=== PATIENT | female | born 1975 | race Caucasian/White ===

== ENCOUNTER 2020-11-05 10:39 | Outpatient (CLI) | payer OTHER, SELFPAY ==
[2020-11-05 11:38] LABS: Influenza Control Valid (Valid)
[2020-11-05 11:39] LABS: SARS-CoV-2 Ag Negative (Negative)
== END 2020-11-05 10:40 | disposition home or self-care (01) ==
LOC: CHSLAB 10:42
PROVIDERS: PCP Internal Medicine; Visit Provider Internal Medicine
DX: R50.9 Fever, unspecified (principal); R09.81 Nasal congestion; Z20.828 Contact with and (suspected) exposure to other viral communicable diseases
CPT/HCPCS: 87426; 87804

== ENCOUNTER 2020-11-09 12:30 | Outpatient (CLI) | payer OTHER, SELFPAY ==
[2020-11-09 13:21] LABS: SARS-CoV-2 Ag Negative (Negative)
== END 2020-11-09 12:31 | disposition home or self-care (01) ==
LOC: CHSLAB 12:33
PROVIDERS: PCP Internal Medicine; Visit Provider Internal Medicine
DX: Z20.828 Contact with and (suspected) exposure to other viral communicable diseases (principal)
CPT/HCPCS: 87426

== ENCOUNTER 2020-12-08 07:56 | Outpatient (CLI) | payer OTHER, SELFPAY ==
--- NOTE | ~2020-12-08 | MM_ITS ---
EXAMINATION: MM screening matheus BI w kaylene HISTORY: Screening mammogram TECHNIQUE: Craniocaudal and mediolateral oblique 3-D tomosynthesis images were obtained and synthetic 2-D images were generated. CAD analysis was submitted and interpreted. COMPARISON: 10/23/2019, 01/30/2018, 06/01/2016 bilateral digital screening mammogram examinations BREAST PARENCHYMAL COMPOSITION: There are scattered areas of fibroglandular density. FINDINGS: There is no evidence of suspicious mass, calcification, or architectural distortion to sugg est malignancy in either breast. There has been no suspicious interval change. IMPRESSION: 1. No mammographic evidence of malignancy. 2. Recommend routine screening mammography in one year. BI-RADS Category 1: Negative Reviewed, dictated and finalized at location A. HALMIC AIDE
== END 2020-12-08 07:57 | disposition home or self-care (01) ==
LOC: CHSIMG 07:59
PROVIDERS: PCP Internal Medicine; Visit Provider Nurse Practitioner
DX: Z12.31 Encounter for screening mammogram for malignant neoplasm of breast (principal)
CPT/HCPCS: 77063; 77067

== ENCOUNTER 2021-05-18 11:32 | Outpatient (CLI) | payer OTHER, SELFPAY ==
--- NOTE | ~2021-05-18 | XR_ITS ---
EXAMINATION: XR lumbar spine 2-3V DATE: 05/18/2021 11:59 INDICATION: Low back pain TECHNIQUE: Anteroposterior and lateral views of the lumbar spine, and cone-down lateral view of the l umbosacral junction were obtained. COMPARISON: CT, 07/12/2019 FINDINGS: There are 20 degrees of thoracolumbar dextroscoliosis. No fracture is identified. The verte bral body heights are maintained. There is moderate asymmetric loss of intervertebral disc space heig ht on the right at L4-5 and mild asymmetric loss of intervertebral disc space height on the left at L 1-2 and L2-3. The bowel gas pattern is normal. IMPRESSION: 1. Lumbar dextroscoliosis and mild spondylosis without acute findings. Reviewed, dictated and finalized at location B.
== END 2021-05-18 11:33 | disposition home or self-care (01) ==
LOC: CHSIMG 11:34
PROVIDERS: PCP Internal Medicine; Visit Provider Nurse Practitioner Family
DX: M54.5 Low back pain (principal)
CPT/HCPCS: 72100

== ENCOUNTER 2021-06-10 11:04 | Outpatient (CLI) | payer OTHER, SELFPAY ==
[2021-06-10 12:57] LABS: SARS-CoV-2 RNA PCR Negative (Negative)
== END 2021-06-10 11:05 | disposition home or self-care (01) ==
LOC: CHSLAB 11:06
PROVIDERS: PCP Internal Medicine; Visit Provider Internal Medicine
DX: J06.9 Acute upper respiratory infection, unspecified (principal)
CPT/HCPCS: C9803; U0003; U0005

== ENCOUNTER 2021-06-29 16:56 | Outpatient (CLI) | payer OTHER, SELFPAY ==
[2021-06-29 18:18] LABS: SARS-CoV-2 RNA PCR Negative (Negative)
== END 2021-06-29 16:57 | disposition home or self-care (01) ==
LOC: CHSLAB 16:59
PROVIDERS: PCP Internal Medicine; Visit Provider Internal Medicine
DX: J06.9 Acute upper respiratory infection, unspecified (principal); Z20.822 Contact with and (suspected) exposure to COVID-19
CPT/HCPCS: C9803; U0003; U0005

== ENCOUNTER 2021-07-09 12:34 | Outpatient (CLI) | payer OTHER, SELFPAY ==
--- NOTE | ~2021-07-09 | CT_ITS ---
EXAMINATION: CT sinus wo con DATE: 07/09/2021 12:49 INDICATION: Chronic sinusitis TECHNIQUE: Computed tomography (CT) of the paranasal sinuses was performed without intravenous contra st. The dose-length product was 279.81 mGy-cm. Automated exposure control and iterative reconstructio n technique were employed. COMPARISON: None FINDINGS: No significant mucosal thickening, fluid or mucoperiosteal reaction. Rightward nasal septal deviation. Ostiomeatal units are patent. Mastoids are pneumatized. IMPRESSION: 1. No significant sinus disease. Reviewed, dictated and finalized at location A.
== END 2021-07-09 12:35 | disposition home or self-care (01) ==
LOC: CHSIMG 12:36
PROVIDERS: PCP Internal Medicine; Visit Provider Internal Medicine
DX: J32.9 Chronic sinusitis, unspecified (principal)
CPT/HCPCS: 70486

== ENCOUNTER 2021-11-24 11:39 | Outpatient (CLI) | payer OTHER, SELFPAY ==
[2021-11-24 13:05] LABS: Influenza Control Valid (Valid); SARS-CoV-2 Ag Positive (Negative)
== END 2021-11-24 11:40 | disposition home or self-care (01) ==
LOC: CHSLAB 11:40
PROVIDERS: PCP Internal Medicine; Visit Provider Internal Medicine
DX: U07.1 COVID-19 (principal); J06.9 Acute upper respiratory infection, unspecified
CPT/HCPCS: 87081; 87426; 87804; 87880; C9803

== ENCOUNTER 2022-01-27 07:28 | Outpatient (CLI) | payer OTHER, SELFPAY ==
--- NOTE | ~2022-01-27 | MM_ITS ---
EXAMINATION: MM screening matheus BI w kaylene HISTORY: Screening TECHNIQUE: Craniocaudal and mediolateral oblique 3-D tomosynthesis images were obtained and synthetic 2-D images were generated. CAD analysis was submitted and interpreted. COMPARISON: Comparison to multiple prior studies sequentially, with oldest reviewed study dated 07/15. BREAST PARENCHYMAL COMPOSITION: There are scattered areas of fibroglandular density. FINDINGS: There is no evidence of suspicious mass, calcification, or architectural distortion to sugg est malignancy in either breast. There has been no suspicious interval change. IMPRESSION: 1. No mammographic evidence of malignancy. 2. Recommend routine screening mammography in one year. BI-RADS Category 1: Negative Reviewed, dictated and finalized at location A. THCARE RECRUITER
== END 2022-01-27 07:29 | disposition home or self-care (01) ==
LOC: CHSIMG 07:31
PROVIDERS: PCP Internal Medicine; Visit Provider Nurse Practitioner
DX: Z12.31 Encounter for screening mammogram for malignant neoplasm of breast (principal)
CPT/HCPCS: 77063; 77067

== ENCOUNTER → 2022-03-17 14:50 | Outpatient (CLI) | payer OTHER, SELFPAY ==
--- NOTE | ~2022-03-17 | US_ITS ---
EXAMINATION: US pelvic complete DATE: 03/17/2022 15:14 INDICATION: Menorrhagia TECHNIQUE: Multiple transabdominal sonographic images of the pelvis were obtained. COMPARISON: None. FINDINGS: The uterus measures 7.6 x 3.2 x 3.3 cm. The endometrial complex measures 6 mm. The right ov talon measures 3.1 x 2.5 x 2.4 cm. The left ovary measures 2.7 x 1.8 x 2.7 cm. There is normal vascular flow in the ovaries. There is no free fluid in the pelvis. IMPRESSION: 1. No sonographic correlate for the patient's symptoms. Reviewed, dictated and finalized at location F.
== END ==
PROVIDERS: PCP Internal Medicine; Visit Provider Obstetrics & Gynecology Gynecology
DX: N92.0 Excessive and frequent menstruation with regular cycle (principal)
CPT/HCPCS: 76856

== ENCOUNTER 2022-06-27 12:02 | Outpatient (CLI) | payer OTHER, SELFPAY ==
[2022-06-27 12:58] LABS: SARS-CoV-2 RNA PCR Negative (Negative)
== END 2022-06-27 12:03 | disposition home or self-care (01) ==
LOC: CHSLAB 12:05
PROVIDERS: PCP Internal Medicine; Visit Provider Nurse Practitioner Family
DX: R51.9 Headache, unspecified (principal); Z20.822 Contact with and (suspected) exposure to COVID-19
CPT/HCPCS: C9803; U0003; U0005

== ENCOUNTER 2022-07-19 14:12 | Emergency (ER) | payer OTHER, SELFPAY ==
[2022-07-19] VITALS (15 sets, daily range): BP systolic 122–178; BP diastolic 73–97; PULSE 87–115; RESP 16; TEMP 36.4–36.8; O2SAT 96–100
--- NOTE | ~2022-07-19 | XR_ITS ---
EXAMINATION: XR chest 1V portable DATE: 07/19/2022 14:40 INDICATION: Chest pain. TECHNIQUE: A single frontal view of the chest was obtained. COMPARISON: None. FINDINGS: There is no pneumonia, pleural effusion, or pneumothorax. The heart size is normal. IMPRESSION: 1. No acute cardiopulmonary disease. Reviewed, dictated and finalized at location A.
[2022-07-19] MEDS: ASPIRIN 81 MG CHEWABLE TABLET 324 MG PO (14:36)
--- NOTE | 2022-07-19 14:46 | ECG_ITS ---
Measurements Intervals [place] Rate: 104 P: 13 WI: 128 QRS: 35 QRSD: 93 T: 37 QT: 350 QTc: 461 Interpretive Statements SINUS TACHYCARDIA ABNORMAL RHYTHM ECG NO PREVIOUS ECG AVAILABLE FOR COMPARISON Electronically Signed On 07-19-2022 20:35:15 CDT by Lima Mcfadden M.D.
[2022-07-19 14:51] LABS: Basophils Absolute Auto 0.05 K/mm3 (0.00-0.10); Basophils Percent Auto 0.6 % (0.0-1.0); Eosinophils Absolute Auto 0.15 K/mm3 (0.02-0.50); Eosinophils Percent Auto 1.7 % (1.0-6.0); Hematocrit 38.7 % (35.0-49.0); Immature Granulocyte Absolute 0.03 K/mm3 (0.00-0.00); Immature Granulocyte Percent A 0.3 % (0.0-0.0); Lymphocytes Absolute Auto 3.31 K/mm3 (1.10-4.50); Lymphocytes Percent Auto 37.9 % (18.0-42.0); Mean Corpuscular HGB Conc 33.6 g/dL (32.0-36.0); Mean Corpuscular Hemoglobin 31.1 pg (27.0-31.0); Mean Corpuscular Volume 92.6 fL (78.0-102.0); Mean Platelet Volume 9.7 fl (9.2-11.8); Monocytes Absolute Auto 0.61 K/mm3 (0.10-0.90); Neutrophils Absolute Auto 4.6 K/mm3 (1.7-7.2); Neutrophils Percent Auto 52.5 % (50.0-70.0); Platelet Count Result 296 K/mm3 (150-420); Red Blood Count 4.18 M/mm3 (4.20-5.40); Red Cell Distribution Width 12.9 % (11.6-14.4); White Blood Count 8.7 K/mm3 (4.8-10.8)
[2022-07-19 15:18] LABS: Appearance Urine Clear (Clear); Bilirubin Urine Negative (Negative); Color Urine Light Yellow (Yellow); Glucose Urine UA Negative (Negative); Ketones Urine Negative (Negative); Leukocyte Esterase Ur Negative LEU/UL (Negative); Nitrate Urine Negative (Negative); Protein Urine Negative (Negative); Specific Grav Ur <= 1.005 (1.010-1.020); Urobilinogen Urine 0.2 mg/dL (0.2-1.0); pH Urine 6.5 (5.0-8.0)
[2022-07-19 15:21] LABS: Lactic Acid Reflex 1.1 mmol/L (0.4-2.0)
[2022-07-19 15:26] LABS: Alanine Aminotransferase 34 U/L (14-59); Albumin Level 4.2 g/dL (3.4-5.0); Alkaline Phosphatase 73 U/L (46-116); Anion Gap 12 mmol/L (8-16); Aspartate Amino Transferase 25 U/L (15-37); Bilirubin,Total 0.3 mg/dL (0.00-1.00); Blood Urea Nitrogen 14 mg/dL (7-18); Calcium 9.3 mg/dL (8.5-10.1); Carbon Dioxide 22 mmol/L (21-32); Chloride 101 mmol/L (98-108); Estimated Glomerular Filt Rate > 60; Glucose 89 mg/dL (70-99); NT Pro B Type Natriuretic Pept < 11 pg/mL (0-125); Osmolality Calculated 279 mOsm/kg (285-295); Potassium 3.5 mmol/L (3.5-5.1); Sodium 135 mmol/L (136-145); Total Protein 7.8 g/dL (6.4-8.2)
[2022-07-19 15:30] LABS: Add Urine Microscopic? YES; Amphetamine Screen Urine Negative (Negative); Bacteria Urine Trace /hpf; Barbiturate Screen Urine Negative (Negative); Benzodiazepines Screen Urine Negative (Negative); Blood Urine Trace-lysed (Negative); Cannabinoid Screen Urine Negative (Negative); Cocaine Screen Urine Negative (Negative); Methadone Screen Urine Negative (Negative); Opiate Screen Urine Negative (Negative); Phencyclidine Screen Urine Negative (Negative); RBC Urine 0-2 /hpf (0-2); Squamous Epithelial Cell Urine Rare /hpf (Few); WBC Urine 0-3 /hpf (0-3)
[2022-07-19 15:36] LABS: Troponin I 9.1 ng/L (0.00-60.4)
[2022-07-19 15:36] LABS: Ethanol < 3 mg/dL (0-6); Thyroid Stimulating Hormone 2.44 uIU/mL (0.36-3.74)
--- NOTE | 2022-07-19 15:52 | ED.CHESTPAIN ---
HPI - Chest Pain General Chief Complaint: Chest Pain Stated Complaint: CHEST PAIN/SOB Time Seen by Provider: 07/19/22 14:16 Source: patient and RN notes reviewed Mode of arrival: ambulatory Limitations: no limitations History of Present Illness MD complaint: chest pain Onset (ago): day(s) (1) Timing of current episode: constant Prior episodes: Yes Onset: during rest Pain location: substernal Pain radiation: none Severity: moderate Pain scale (0-10): 7 Quality: sharp and tearing Relieving factors: nothing Exacerbating factors: inspiration Treatment prior to arrival: none Related Data Home Medications Medication Instructions Recorded Confirmed acyclovir 400 mg tablet 400 mg PO BID 07/19/22 07/19/22 alprazolam 0.25 mg tablet 0.25 mg PO DAILY 07/19/22 07/19/22 amlodipine 10 mg tablet 10 mg PO DAILY 07/19/22 07/19/22 bupropion HCl 300 mg 24 hr tablet, 300 mg PO DAILY 07/19/22 07/19/22 extended release buspirone 10 mg tablet 10 mg PO BID 07/19/22 07/19/22 duloxetine 60 mg capsule,delayed 60 mg PO DAILY 07/19/22 07/19/22 release losartan 25 mg tablet 25 mg PO DAILY 07/19/22 07/19/22 rosuvastatin 20 mg tablet 20 mg PO DAILY 07/19/22 07/19/22 Allergies Allergy/AdvReac Type Severity Reaction Status Date / Time Cephalosporins Allergy Intermediate Unknown Verified 07/19/22 14:37 Review of Systems Review of Systems: All systems reviewed & are unremarkable except as noted in HPI and below Constitutional: Constitutional: Reports no additional constitutional complaints Eyes: Eyes: Reports no additional eye complaints ENT: Reports system reviewed and no additional complaints, except as documented Cardiovascular: Cardiovascular: Denies no additional cardiovascular complaints and Reports chest pain Respiratory: Respiratory: Reports no additional respiratory complaints Gastrointestinal: Gastrointestinal: Reports no additional gastrointestinal complaints Genitourinary: Genitourinary: Reports no additional female genitourinary complaints Musculoskeletal: Musculoskeletal: Reports no additional musculoskeletal complaints Integumentary/Breasts: Skin/Breast: Reports system reviewed and no additional complaints, except as docu Neurologic: Reports system reviewed and no additional complaints, except as documented Psychiatric: Psychiatric: Reports no additional psychiatric complaints Endocrine: Endocrine: Reports no additional endocrine complaints Hematologic/Lymphatic: Hematologic/Lymphatic: Reports no additional hematologic/lymphatic complaints Allergic/Immunologic: Allergic/Immunologic: Reports no additional allergic/immunologic complaints PMFSH Past Medical History Medical History Chest pain due to GERD Pleurisy Social History Social History Smoking status: Current some day smoker Exam Const: General: no acute distress Nutritional Appearance: well nourished Orientation/consciousness: patient oriented x3 Limitations: no limitations HENMT: Head: normal to inspection Ears: external ears normal, TM's normal bilaterally and EAC's normal General nose exam: Normal external nose present and Normal nares present Face and sinus: normal facial exam and sinuses nontender Mouth: Yes Normal oral and palatal mucosa present and Yes moist mucous membranes Teeth and gingiva: dentition normal Throat: posterior oropharynx normal Eyes: Conjunctivae: conjunctivae normal Pupils: Equal, round and reactive pupils present EOM: EOMs intact bilaterally Neck: Neck: normal visual inspection, no lymphadenopathy and no meningeal signs Chest: Chest palpation & inspection: normal inspection of the chest Other: minimal anterior chest wall tenderness. Resp: Effort & Inspection: normal respiratory effort Auscultation: clear to auscultation bilaterally Cardio: Rate: regular rate Rhythm: regular rhythm GI: GI Palp
[2022-07-19] MEDS: ACETAMINOPHEN 325 MG TABLET 650 MG PO (16:00)
[2022-07-19] MEDS: MAG HYDROX/ALUMINUM HYD/SIMETH 30 ML, PHENobarb/HYOSCY/ATROPINE/SCOP 32.4 MG, LIDOCAINE... PO (16:01)
== END 2022-07-19 16:19 | disposition home or self-care (01) ==
PROVIDERS: Emergency Provider Emergency Medicine; PCP Internal Medicine
DX: R07.89 Other chest pain (principal); R09.1 Pleurisy; K21.9 Gastro-esophageal reflux disease without esophagitis
CPT/HCPCS: 36415; 71045; 80053; 80307; 81001; 83605; 83880; 84443; 84484; 85025; 93005; 99284; A9270

== ENCOUNTER 2022-07-29 08:00 | Outpatient (CLI) | payer OTHER, SELFPAY ==
--- NOTE | ~2022-07-29 | US_ITS ---
EXAMINATION: US right upper quadrant DATE: 07/29/2022 09:25 INDICATION: Abdominal pain and nausea TECHNIQUE: Multiple grayscale and Doppler ultrasound images of the abdomen were obtained. COMPARISON: CT, 07/12/2019 FINDINGS: Bowel gas obscures visualization of the pancreas. The visualized portions of the pancreas a re unremarkable. The liver demonstrates increased echogenicity, heterogenous echotexture, and decreas ed through transmission. No surface nodularity. Normal hepatopetal flow in the main portal vein. The gallbladder is normal with no abnormal wall thickening, pericholecystic fluid or stones. The normal c ommon bile duct measures 6 mm. There was no sonographic Paz sign. IMPRESSION: 1. Diffuse hepatic steatosis. Reviewed, dictated and finalized at location B.
== END 2022-07-29 08:01 | disposition home or self-care (01) ==
LOC: CHSIMG 08:01
PROVIDERS: PCP Internal Medicine; Visit Provider Internal Medicine
DX: R10.11 Right upper quadrant pain (principal)
CPT/HCPCS: 76705

== ENCOUNTER 2022-08-15 10:57 | Outpatient (CLI) | payer OTHER, SELFPAY ==
--- NOTE | ~2022-08-15 | NM_ITS ---
HEPATOBILIARY SCAN Procedure: Hepatobiliary scan performed following IV administration 6.1 mCi Tc 99m Choletec. At 60 m inutes 1.7 mcg CCK administered IV for evaluation of gallbladder ejection fraction. Indication:Right upper quadrant pain Comparison: Ultrasound dated 07/29/2022 Findings: There is normal radiotracer uptake in the liver parenchyma with prompt excretion into the b iliary tract. Gallbladder visualized at 15 minutes. Small bowel visualized at 5 minutes. Normal ga llbladder ejection fraction measures 72% (normal 10-90%, but most patients with gallbladder dysfuncti on have GBEF of less than 35%) Impression: 1: Normal hepatobiliary scan. Reviewed, dictated and finalized at location B. Impression: 1: Normal hepatobiliary scan.
== END 2022-08-15 10:58 | disposition home or self-care (01) ==
LOC: CHSIMG 10:59
PROVIDERS: PCP Internal Medicine; Visit Provider Internal Medicine
DX: R10.11 Right upper quadrant pain (principal); R11.0 Nausea
CPT/HCPCS: 78227; A9537; J2805

== ENCOUNTER 2023-02-13 07:59 | Outpatient (CLI) | payer OTHER, SELFPAY ==
--- NOTE | ~2023-02-13 | MM_ITS ---
EXAMINATION: MM screening matheus BI w kaylene HISTORY: Screening TECHNIQUE: Craniocaudal and mediolateral oblique 3-D tomosynthesis images were obtained and synthetic 2-D images were generated. CAD analysis was submitted and interpreted. COMPARISON: Comparison to multiple prior studies sequentially, with oldest reviewed study dated 07/15. BREAST PARENCHYMAL COMPOSITION: There are scattered areas of fibroglandular density. FINDINGS: There is no evidence of suspicious mass, calcification, or architectural distortion to sugg est malignancy in either breast. There has been no suspicious interval change. IMPRESSION: 1. No mammographic evidence of malignancy. 2. Recommend routine screening mammography in one year. BI-RADS Category 1: Negative Reviewed, dictated and finalized at location A.
== END 2023-02-13 08:00 | disposition home or self-care (01) ==
LOC: CHSIMG 08:00
PROVIDERS: PCP Internal Medicine; Visit Provider Obstetrics & Gynecology Gynecology
DX: Z12.31 Encounter for screening mammogram for malignant neoplasm of breast (principal)
CPT/HCPCS: 77063; 77067

== ENCOUNTER 2023-06-07 07:17 | Day surgery (SDC) | payer OTHER, SELFPAY ==
[2023-04-28 11:18] VITALS: BMI 33.5
[2023-05-30 10:09] VITALS: BMI 34.5
--- NOTE | 2023-06-06 08:17 | WPDANESEPPF ---
Anes - Initial Pre Proc Eval Procedure: Operation Date: 06/07/23 09:15 Proposed Procedures p Screening Colonoscopy - Avila Guerra DO Date/Time: 06/06/23 08:17 Surgeon: Avila Guerra DO Pre Op Diagnosis: Neoplasm Screening Patient Data Age: 48 Gender: F Height: 1.6 m Weight: 88.5 kg Allergies Allergy/AdvReac Type Severity Reaction Status Date / Time No Known Allergies Allergy Verified 06/07/23 08:00 Home Medications Medication Instructions Recorded Confirmed Type acyclovir 400 mg tablet 400 mg PO DAILY 07/19/22 06/07/23 History alprazolam 0.25 mg tablet 0.25 mg PO DAILY PRN Anxiety 07/19/22 06/07/23 History amlodipine 10 mg tablet 10 mg PO DAILY 07/19/22 06/07/23 History buspirone 10 mg tablet 10 mg PO BID 07/19/22 06/07/23 History losartan 25 mg tablet 25 mg PO DAILY 07/19/22 06/07/23 History rosuvastatin 20 mg tablet 20 mg PO DAILY 07/19/22 06/07/23 History pantoprazole 40 mg tablet,delayed 40 mg PO DAILY 05/30/23 06/07/23 History release quetiapine 25 mg tablet 25 mg PO BID 05/30/23 06/07/23 History Patient hx anesthesia problems: none Family hx anesthesia problems: none Results Review: All pre-operative results and documents have been reviewed as part of the pre-operative evaluation. [facility] Past Medical History Medical History (Updated 06/07/23 @ 08:36 by Avila Guerra DO) Anxiety Chest pain due to GERD Chronic GERD Depression HTN (hypertension) Hyperlipidemia Obesity Pleurisy Social History Social History Smoking status: Never smoker Alcohol intake: current Substance use: never Substance use type: does not use Living arrangements: with family Spiritual care concerns: No Anes - Eval Final PreProcedure Day of Procedure 06/06/23 08:17 Patient weight: obese Heart: regular rate and rhythm Lungs: clear to auscultation and normal air movement Airway: Mallampati scale class II Neurological: alert and oriented Last oral intake: >/= 8 hours ASA classification: III Emergent: no Anesthetic plan: proceed Anesthesia type and monitoring: general GIVS Results Review: All pre-operative results and documents have been reviewed as part of the pre-operative evaluation. Informed Consent: The patient's anesthetic plan and its attendant risks and benefits were discussed with the patient/family/POA. Questions were solicited and answers provided to the satisfaction of the patient/family/POA.
[2023-06-07 08:06] VITALS: BP 121/71; PULSE 72; RESP 14; TEMP 36.4; O2SAT 100
[2023-06-07] MEDS: LACTATED RINGERS 1,000 ML 150 ML IV CONT (08:17)
--- NOTE | 2023-06-07 08:35 | PM.IMHP ---
H&P: HPI History of Present Illness Date/Time: 06/07/23 08:35 Chief Complaint: Screening for colorectal cancer Narrative: this is a 48-year-old woman who presents for colonoscopy. She has never had a colonoscopy before. She denies any family history of colon cancer in first-degree relatives, but does have an aunt and cousin that were diagnosed with colon cancer. She denies any hematochezia or melena. She denies any other changes in bowel habits. Review of Systems Review of Systems: All systems reviewed & are unremarkable except as noted in HPI and below Constitutional: Constitutional: Denies chills, Denies fever(s), Denies headache(s) and Denies weight loss Eyes: Eyes: Denies change in vision ENT: Denies dizziness, Denies headache(s), Denies neck mass and Denies throat swelling Cardiovascular: Cardiovascular: Denies chest pain, Denies lightheadedness and Denies dyspnea Respiratory: Respiratory: Denies cough, Denies dyspnea and Denies wheezing Gastrointestinal: Gastrointestinal: Denies abdominal pain, Denies change in bowel habits, Denies nausea and Denies vomiting Genitourinary: Genitourinary: Denies hematuria and Denies dysuria Musculoskeletal: Musculoskeletal: Reports as per HPI Integumentary/Breasts: Skin/Breast: Reports as per HPI Neurologic: Denies dizziness and Denies headache(s) Allergic/Immunologic: Allergic/Immunologic: Denies throat swelling and Denies wheezing [facility] Past Medical History Medical History (Updated 06/07/23 @ 08:36 by Avila Guerra DO) Anxiety Chest pain due to GERD Chronic GERD Depression HTN (hypertension) Hyperlipidemia Obesity Pleurisy Social History Social History Smoking status: Never smoker Alcohol intake: current Substance use: never Substance use type: does not use Living arrangements: with family Spiritual care concerns: No Meds Home Medications and Allergies Home Medications Medication Instructions Recorded Confirmed Type acyclovir 400 mg tablet 400 mg PO DAILY 07/19/22 06/07/23 History alprazolam 0.25 mg tablet 0.25 mg PO DAILY PRN Anxiety 07/19/22 06/07/23 History amlodipine 10 mg tablet 10 mg PO DAILY 07/19/22 06/07/23 History buspirone 10 mg tablet 10 mg PO BID 07/19/22 06/07/23 History losartan 25 mg tablet 25 mg PO DAILY 07/19/22 06/07/23 History rosuvastatin 20 mg tablet 20 mg PO DAILY 07/19/22 06/07/23 History pantoprazole 40 mg tablet,delayed 40 mg PO DAILY 05/30/23 06/07/23 History release quetiapine 25 mg tablet 25 mg PO BID 05/30/23 06/07/23 History Allergies Allergy/AdvReac Type Severity Reaction Status Date / Time No Known Allergies Allergy Verified 06/07/23 08:00 Vital Signs Vital Signs - 24 hr 06/07/23 08:06 Temperature 36.4 C L Pulse Rate 72 Respiratory Rate 14 Blood Pressure 121/71 Pulse Oximetry 100 Oxygen Delivery Room Air Exam Const: General: no acute distress and alert Orientation/consciousness: patient oriented x3 HENMT: Head: normocephalic and atraumatic Ears: hearing grossly normal bilaterally Face/Nose/Sinus: Normal nares present Mouth: Yes Normal oral and palatal mucosa present Eyes: Periorbital: periorbital findings normal Sclera: sclerae normal EOM: EOMs intact bilaterally Neck: Neck: normal visual inspection, no lymphadenopathy and trachea midline Chest: Chest palpation & inspection: normal inspection of the chest Resp: Effort & Inspection: normal respiratory effort Auscultation: clear to auscultation bilaterally Cardio: Jugular venous distension: no JVD Rate: regular rate Rhythm: regular rhythm Heart sounds: S1 normal heart sound present and S2 normal heart sound present Peripheral pulses: Peripheral pulses 2+ throughout GI: Inspection: normal to inspection GI Palp: Yes Soft to palpation, No Tenderness to palpation present (GI), No Guarding due to palpation present (GI) and No Rebound tenderness present
[2023-06-07 09:52] VITALS: BP 113/56; PULSE 102; RESP 20; O2SAT 100
[2023-06-07 10:02] VITALS: BP 112/85; PULSE 87; RESP 18; O2SAT 97
[2023-06-07 10:12] VITALS: BP 118/65; PULSE 76; RESP 18; O2SAT 99
--- NOTE | 2023-06-07 12:53 | WPDANESPN ---
Anes - Prog Note Post-Op Date/Time: 06/07/23 12:53 Cardiovascular status: normal Respiratory status: normal Airway patency: baseline Mental status: baseline Post-Op hydration status: normal Vital Signs: Last Vital Signs Temp 36.4 C L 06/07/23 08:06 Pulse 76 06/07/23 10:12 Resp 18 06/07/23 10:12 BP 118/65 06/07/23 10:12 Pulse Ox 99 06/07/23 10:12 O2 Del Method Room Air 06/07/23 10:12 Pain Score (VAS): 0 I/O: Intake & Output 06/06/23 06/07/23 06/07/23 23:59 07:59 15:59 Intake Total 600 Balance 600 Post-procedural complaints: none Patient Feedback: Patient satisfied with anesthetic care.
== END 2023-06-07 10:23 | disposition home or self-care (01) ==
PROVIDERS: PCP Internal Medicine; Visit Provider Surgery
PROC: 0DJD8ZZ Inspection of Lower Intestinal Tract, Via Natural or Artificial Opening Endoscopic (ICD-10-PCS; CPT 45378; principal; 2023-06-07 09:15)
DX: Z12.11 Encounter for screening for malignant neoplasm of colon (principal)
CPT/HCPCS: 45378

== ENCOUNTER 2024-08-23 08:36 | Outpatient (CLI) | payer OTHER, SELFPAY ==
--- NOTE | ~2024-08-23 | MM_ITS ---
EXAMINATION: MM screening matheus BI w kaylene HISTORY: Screening TECHNIQUE: Craniocaudal and mediolateral oblique 3-D tomosynthesis images were obtained and synthetic 2-D images were generated. CAD analysis was submitted and interpreted. COMPARISON: Comparison to multiple prior studies sequentially, with oldest reviewed study dated 06/01. BREAST PARENCHYMAL COMPOSITION: Not dense: There are scattered areas of fibroglandular density. FINDINGS: There is no evidence of suspicious mass, calcification, or architectural distortion to sugg est malignancy in either breast. There has been no suspicious interval change. IMPRESSION: 1. No mammographic evidence of malignancy. 2. Recommend routine screening mammography in one year. BI-RADS Category 1: Negative Reviewed, dictated and finalized at location B.
== END 2024-08-23 08:37 | disposition home or self-care (01) ==
LOC: CHSIMG 08:39
PROVIDERS: PCP Internal Medicine; Visit Provider Nurse Practitioner Women's Health
DX: Z12.31 Encounter for screening mammogram for malignant neoplasm of breast (principal)
CPT/HCPCS: 77063; 77067

== ENCOUNTER 2025-01-07 13:38 | Emergency (ER) | payer OTHER, SELFPAY ==
[2025-01-07] VITALS (16 sets, daily range): BP systolic 90–142; BP diastolic 71–92; PULSE 83–103; RESP 14–24; TEMP 36.6; O2SAT 95–100
--- NOTE | ~2025-01-07 | CT_ITS ---
EXAMINATION: CT brain wo con DATE: 01/07/2025 13:59 INDICATION: Cerebrovascular accident. TECHNIQUE: Computed tomography (CT) of the head was performed without intravenous contrast. The mA wa s adjusted according to patient size. Iterative reconstruction technique was employed. The dose-lengt h product was 605.33 mGy-cm. COMPARISON: None FINDINGS: There is no intracranial hemorrhage, acute infarction, or abnormal intracranial mass lesion . The ventricles are normal in size. The orbits are normal. The paranasal sinuses are clear. The mast oid air cells are normal. IMPRESSION: 1. Normal brain. Reviewed, dictated and finalized at location A. LINE SERVICER IMPRESSION: 1. Normal brain.
--- NOTE | ~2025-01-07 | CT_ITS ---
EXAMINATION: CTA brain carotid DATE: 01/07/2025 15:20 INDICATION: Cerebrovascular accident. TECHNIQUE: Computed tomographic angiography (CTA) of the head was performed with 100 mL Omnipaque-350 intravenous contrast. CTA of the neck was performed with intravenous contrast. Automated exposure co ntrol and iterative reconstruction technique were employed. The dose-length product was 1240.05 mGy-c m. Maximum intensity projection and volume rendered 3D-reconstructions were created by the [facility] on a separate workstation. COMPARISON: Head CT 01/07/2025 FINDINGS: HEAD CTA: There is no intracranial hemorrhage, acute infarction, or abnormal intracranial mass lesion . The ventricles are normal in size. The orbits are normal. The paranasal sinuses are clear. The mast oid air cells are normal. Left vertebral artery is dominant. There is no significant stenosis of basi lar artery or the posterior cerebral arteries. There is no significant stenosis of the intracranial i nternal carotid arteries or anterior or middle cerebral arteries. Anterior communicating artery is no rmal. The posterior communicating arteries are normal. There is no aneurysm. NECK CTA: There are no pathologically enlarged lymph nodes. There is no significant stenosis of the v ertebral arteries. There is plaque in the proximal internal carotid arteries. There is 0% stenosis of the proximal right internal carotid artery relative to normal distal artery lumen diameter (NASCET c riteria). There is 0% stenosis of the proximal left internal carotid artery relative to normal distal artery lumen diameter. There is mild cervical spondylosis. IMPRESSION: 1. Normal brain. No aneurysm or significant intracranial arterial stenosis. 2. 0% stenosis of the proximal internal carotid arteries relative to normal distal artery lumen diame ters (NASCET criteria). Reviewed, dictated and finalized at location A. DRIER IMPRESSION: 1. Normal brain. No aneurysm or significant intracranial arterial stenosis. 2. 0% stenosis of the proximal internal carotid arteries relative to normal dis jakub artery lumen diameters (NASCET criteria).
--- NOTE | ~2025-01-07 | XR_ITS ---
EXAMINATION: XR chest 1V portable 01/07/2025 14:05 INDICATION: CVA PROCEDURE: AP portable chest COMPARISON: Comparison to multiple prior studies sequentially, with oldest reviewed study dated 07/19. FINDINGS: The lungs are clear. The cardiomediastinal silhouette is within normal limits. There are no pleural effusions. There is no pneumothorax suspected. IMPRESSION: 1: NO ACUTE CARDIOPULMONARY DISEASE. Reviewed, dictated and finalized at location B. UMER CREDIT COUNSELOR
--- NOTE | 2025-01-07 13:43 | ECG_ITS ---
Test Date: 2025-01-07 14:05:56 Measurements Intervals [place] Rate: 96 P: 21 NM: 157 QRS: 7 QRSD: 98 T: 14 QT: 353 QTc: 447 Interpretive Statements SINUS RHYTHM EARLY PRECORDIAL R/S TRANSITION BASELINE ARTIFACT- I, II, III, AVR, AVF BORDERLINE ECG No previous ECG available for comparison Electronically Signed On 01-07-2025 14:23:24 DIRECTOR FOOD SAFETY by Bear Archuleta D.O.
--- OUTSIDE RECORDS SUMMARY | 2025-01-07 13:47 | XMS_ITS | Referral Summary ---
Author Organization [facility] [address] Address [address] [place] [address] Care Team Providers Care Solar Sales Advisor Name Role Phone Rell Bautista MD Primary Care Provider Allergies No known active allergies Medications HYDROcodone-vicente taminophen (NORCO) 7.5-325 mg per tabletIndicatio ns:Pain 0 8 Active SUMAtriptan (IMITREX) 100 mg tablet Take 1 tablet (100 mg total) by mouth once as needed for migraine for up to 1 dose. 9 tablet 11 8 Active famotidine (PEPCID) 10 mg tablet Take 1 tablet (10 mg total) by mouth 2 (two) times a day. 60 tablet [address] (CYMBALTA) 60 mg capsule Take 1 capsule (60 mg total) by mouth daily. 90 capsule 3 8 Active amLODIPine (NORVASC) 5 mg tablet Take 1 tablet (5 mg total) by mouth daily. 90 tablet 3 8 Active losartan (COZAAR) 25 mg tablet Take 1 tablet (25 mg total) by mouth daily. 90 tablet 3 8 Active sertraline (ZOLOFT) 50 mg tablet Take 1 tablet (50 mg total) by mouth daily. 90 tablet 3 8 Active Additional Information Patient not taking.Reported on 08/03/2021 pravastatin (PRAVACHOL) 20 mg tablet Take 1 tablet (20 mg total) by mouth daily. Cancel atorvastatin 90 tablet 3 9 Active clotrimazole-be tamethasone (LOTRISONE) cream APPLY TO AFFECTED AREA THREE TIMES A DAY DIRECTED 15 g 11 9 Active Additional Information Patient not taking.Reported on 08/03/2021 cyclobenzaprine (FLEXERIL) 10 mg tablet Take 1 tablet (10 mg total) by mouth 2 (two) times a day as needed for muscle spasms 60 tablet 5 9 Active Additional Information Patient not taking.Reported on 08/03/2021 ALPRAZolam (XANAX) 0.5 mg tablet TAKE ONE TABLET BY MOUTH THREE TIMES A DAY NEEDED FOR ANXIETY 60 tablet 9 Active Additional Information Patient not taking.Reported on 08/03/2021 acyclovir (ZOVIRAX) 400 mg tablet [address] (VOLTAREN) 75 mg EC tablet 1 Active rosuvastatin (CRESTOR) 20 mg tablet 1 Active triamcinolone (KENALOG) 0.1 % cream 1 Active buPROPion XL (WELLBUTRIN XL) 300 mg 24 hr tablet Take 300 mg by mouth daily Active fluorometholone (FML) 0.1 % ophthalmic suspension Administer 1 drop into both eyes 2 (two) times a day Active fluticasone propionate (FLONASE) 50 mcg/actuation nasal spray Administer 2 sprays into each nostril daily Active albuterol (PROAIR RESPICLICK) 90 mcg/actuation inhaler Inhale 2 puffs every 6 (six) hours as needed for wheezing Active Active Problems Problem Noted Date Diagnosed Date Chronic nonintractable headache 08/03/2021 Deviated nasal septum 08/03/2021 Non-seasonal allergic rhinitis due to pollen Migraine without aura or status migrainosus 09/20 Gastroesophageal reflux disease without esophagi tis 10/06/2017 Migraine 06/03/2014 Overview (02/24/2017): MIGRNE UNSP WO NTRC MGRN Benign hypertension 04/05/2014 Overview (02/24/2017): BENIGN HYPERTENSION Multiple-type hyperlipidemia 01/04/2013 Overview (02/23/2017): MIXED HYPERLIPIDEMIA Affective psychosis 04/02/2012 Overview (02/24/2017): AFFECTIVE PSYCHOSIS NOS Immunizations Immunization Administration Dates Next Due Influenza, Unspecified 10/08/2018(Deferred: Gala ent Refused) Tdap 03/06/2019 Social History Tobacco Use Types Packs/Day Years Used Date Smoking Tobacco: Former Cigarettes Q uit: 2020 Smokeless Tobacco: Never Alcohol Use Standard Drinks/Week Comments Yes 0 (1 standard drink = 0.6 oz pur e alcohol) PHQ-2 Answer Date Recorded PHQ-2 Score 0 07/13/2019 Comments No Sex and Gender Information Value Date Recorded Sex Assigned at Not on file Legal Sex Female 11:54 PM PUBLIC HEALTH TECHNICIAN Gender Identity Female 08/03/2021 12:38 PM CDT Sexual Orientation Straight 08/03/2021 12 :38 PM CDT Last Filed Vital Signs Vital Sign Reading Time Taken Comments Blood Pressure 142/86 10/08/2018 4:35 PM PUBLIC HEALTH TECHNICIAN Pulse 104 10/08/2018 4:35 PM PUBLIC HEALTH TECHNICIAN Temperature 36.9 C (98.4 F) 08/03/2021 4:17 PM CDT Respiratory Rate 18 10/08/2018 4:35 PM PUBLIC HEALTH TECHNICIAN Oxygen Saturation 96% 10/08/2018 4:35 PM PUBLIC HEALTH TECHNICIAN Inhaled Oxygen Concentration - - Weight 81.6 kg (180 lb) 08/03/2021 4:17 PM CDT Height 157.5 cm (5' 2 ) 08/03/2021 4:17 PM CDT Body Mass Index 32.92 08/03/2021 4:17 PM CDT Plan of Treatment Not on file Insurance [facility] PLUS [facility] PLUS Care Teams Solar Sales Advisor Relationship Specialty Start Date End Date Rell Bautista MD [address] [place] [address] PCP - General Internal Medicine 07/29/21
--- OUTSIDE RECORDS SUMMARY | 2025-01-07 13:47 | XMS_ITS | Clinical Summary ---
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 Hx Other Medical 03-ENT Hx Other Medical 04-NEUROLOGIST Episodic mood disorder (HCC) moo d disorder Hx Other Medical seasonal allerg ic rhinitis Eczema eczema Allergic rhinitis Anxiety Depression Hypertension Sinusitis Hyperlipidemia Migraine GERD (gastroesophageal reflux disease) Family History Medical History Relation Name Comments Hypertension Brother 3 Hypertension; Other Brother 4 Alive and well; Depression Father Depression; Heart attack Maternal Grandmother Myocard ial infarction; Depression Mother Depression; Hypertension Mother Hypertension; Lung cancer Mother Cancer -lung; Other Mother CAD PCI; Heart disease Paternal Grandmother Heart disease; Relation Name Status Comments Brother 1 Alive Brother 2 Alive Brother 3 Brother 4 Father Maternal Grandmother Alive Mother Alive Paternal Grandmother Alive Social History Tobacco Use Types Packs/Day Years Used Date Smoking Tobacco: Former Cigarettes Q uit: 2020 Smokeless Tobacco: Never Alcohol Use Standard Drinks/Week Comments Yes 0 (1 standard drink = 0.6 oz pur e alcohol) PHQ-2 Answer Date Recorded PHQ-2 Score 0 07/13/2019 Comments No Sex and Gender Information Value Date Recorded Sex Assigned at Not on file Legal Sex Female 11:54 PM MEDICAL SUPERVISOR Gender Identity Female 08/03/2021 12:38 PM CDT Sexual Orientation Straight 08/03/2021 12 :38 PM CDT Obstetrics History Last Filed Vital Signs Vital Sign Reading Time Taken Comments Blood Pressure 142/86 10/08/2018 4:35 PM MEDICAL SUPERVISOR Pulse 104 10/08/2018 4:35 PM MEDICAL SUPERVISOR Temperature 36.9 C (98.4 F) 08/03/2021 4:17 PM CDT Respiratory Rate 18 10/08/2018 4:35 PM MEDICAL SUPERVISOR Oxygen Saturation 96% 10/08/2018 4:35 PM MEDICAL SUPERVISOR Inhaled Oxygen Concentration - - Weight 81.6 kg (180 lb) 08/03/2021 4:17 PM CDT Height 157.5 cm (5' 2 ) 08/03/2021 4:17 PM CDT Body Mass Index 32.92 08/03/2021 4:17 PM CDT Plan of Treatment Not on file Insurance [facility] CHOICE PLUS [facility] CHOICE PLUS Care Teams Tile Edger Relationship Specialty Start Date End Date Rell Bautista MD [address] [phone] PCP - General Internal Medicine 07/29/21
--- NOTE | 2025-01-07 13:54 | PC.NURSE ---
covid culture sent to lab
--- NOTE | 2025-01-07 13:55 | ED.GENADULT ---
HPI - General Adult General Chief complaint: Dizziness <Mandy Del Angel MD - Last Filed: 01/07/25 14:50> Stated complaint: slurred speech <Mandy Del Angel MD - Last Filed: 01/07/25 14:50> Time Seen by Provider: 01/07/25 13:43 <Mandy Del Angel MD - Last Filed: 01/07/25 14:50> Source: patient <Mandy Del Angel MD - Last Filed: 01/07/25 14:50> Mode of arrival: ambulatory <Mandy Del Angel MD - Last Filed: 01/07/25 14:50> Limitations: no limitations <Mandy Del Angel MD - Last Filed: 01/07/25 14:50> History of Present Illness HPI narrative: 49 YEARS OLD WHITE FEMALE CAME TO THE ED BY PRIVATE CAR WITH HER BECAUSE OF STROKE/ TIA LIKE SYMPTOMS. PATIENT LAST TIME WAS SEEN BY HER ,OKAY AT 7:00 A.M., WENT BACK HOME AT 11:00 A.M. FOUND PATIENT CONFUSED, STUMBLING AROUND, SLURRY SPEECH, DIZZY,UNABLE TO COMPARHIND HER QUESTIONS, PATIENT DECLINED COMING TO THE EMERGENCY ROOM AT THAT TIME WENT TO SLEEP, WORKUP LATER WITH IMPROVEMENT, CAME TO THE EMERGENCY ROOM. MOST OF THE ABOVE SYMPTOMS ARE RESOLVED ,CURRENTLY FEELING FUZZY IN THE BRAIN AND GENERALLY WEAK. HISTORY OF HYPERTENSION, HYPERLIPIDEMIA, DEPRESSION, ANXIETY, DOES NOT SMOKE CIGARETTES DRINK ALCOHOL OCCASIONALLY DENIES DRUG USE. <Mandy Del Angel MD - Last Filed: 01/07/25 14:50> Related Data Home medications: Home Medications ?Medication ?Instructions ?Recorded ?Confirmed ?Last Taken ?Type acyclovir 400 mg tablet 400 mg PO DAILY 07/19/22 06/07/23 06/07/23 History alprazolam 0.25 mg tablet 0.25 mg PO DAILY PRN Anxiety 07/19/22 06/07/23 06/07/23 History amlodipine 10 mg tablet 10 mg PO DAILY 07/19/22 06/07/23 06/07/23 History buspirone 10 mg tablet 10 mg PO BID 07/19/22 06/07/23 06/07/23 History losartan 25 mg tablet 25 mg PO DAILY 07/19/22 06/07/23 06/06/23 History rosuvastatin 20 mg tablet 20 mg PO DAILY 07/19/22 06/07/23 06/07/23 History pantoprazole 40 mg tablet,delayed 40 mg PO DAILY 05/30/23 06/07/23 06/07/23 History release quetiapine 25 mg tablet 25 mg PO BID 05/30/23 06/07/23 06/07/23 History <Mandy Del Angel MD - Last Filed: 01/07/25 14:50> Allergies/adverse reactions: Allergies Allergy/AdvReac Type Severity Reaction Status Date / Time No Known Allergies Allergy Verified 01/07/25 13:55 <Mandy Del Angel MD - Last Filed: 01/07/25 14:50> Review of Systems Review of Systems: All systems reviewed & are unremarkable except as noted in HPI and below <Mandy Del Angel MD - Last Filed: 01/07/25 14:50> PMFSH Past Medical History Medical History: Medical History Obesity Depression Anxiety Chronic GERD HTN (hypertension) Hyperlipidemia Pleurisy Chest pain due to GERD <Mandy Del Angel MD - Last Filed: 01/07/25 14:50> Social History Social History: Social History Smoking status: Never smoker Alcohol intake: current Substance use: never Substance use type: does not use Living arrangements: with family Spiritual care concerns: No <Mandy Del Angel MD - Last Filed: 01/07/25 14:50> Exam Narrative: GENERAL APPEARANCE: WELL-DEVELOPED, WELL-NOURISHED, INTERMITTENT SIGHING SKIN: NORMAL COLOR HEAD: NORMOCEPHALIC, NONTRAUMATIC EYES: CLEAR CONJUNCTIVA ENT: OROPHARYNX NORMAL, EARS NORMAL, NOSE NORMAL NECK: SUPPLE, NONTENDER CHEST AND RESPIRATORY: AIRWAY PATENT, NO RESPIRATORY DISTRESS, NO ACCESSORY MUSCLE USE HEART: REGULAR RATE/RHYTHM ABDOMEN: SOFT, NONTENDER, NO ORGANOMEGALY, QUIET BOWEL SOUNDS VASCULAR: NORMAL PERIPHERAL PULSES, NORMAL CAPILLARY REFILL. MUSCULOSKELETAL: NORMAL RANGE OF MOTION, NONTENDER BACK NEUROLOGIC: ALERT AND ORIENTED ?3, SEISMIC PROSPECTING SUPERVISOR IS NORMAL TESTED, NO GROSS MOTOR DEFICIT <Mandy Del Angel MD - Last Filed: 01/07/25 14:50> Course Course Emergency Course: Assumed care from Dr. Del Angel at 1500. Labs showed mild leukocytosis, mild RATNA, and normal drug screen and serology. Normal CT brain EXAMINATION: CTA brain carotid DATE: 01/07/2025 15:20 INDICATION: Cerebrovascular accident. TECHNIQUE: Computed tomographic angiography (CTA) of the head was performed with 100 mL Omnipaque-350 intravenous contrast. CTA of the neck was performed with intravenous contrast. Automated exposure control and iterative reconstruction technique were employed. The dose-length product was 1240.05 mGy-cm. Maximum intensity projection and volume rendered 3D-reconstructions were created by the technologist on a separate workstation. COMPARISON: Head CT 01/07/2025 FINDINGS: HEAD CTA: There is no intracranial hemorrhage, acute infarction, or abnormal intracranial mass lesion. The ventricles are normal in size. The orbits are normal. The paranasal sinuses are clear. The mastoid air cells are normal. Left vertebral artery is dominant. There is no significant stenosis of basilar artery or the posterior cerebral arteries. There is no significant stenosis of the intracranial internal carotid arteries or anterior or middle cerebral arteries. Anterior communicating artery is normal. The posterior communicating arteries are normal. There is no aneurysm. NECK CTA: There are no pathologically enlarged lymph nodes. There is no significant stenosis of the vertebral arteries. There is plaque in the proximal internal carotid arteries. There is 0% stenosis of the proximal right internal carotid artery relative to normal distal artery lumen diameter (NASCET criteria). There is 0% stenosis of the proximal left internal carotid artery relative to normal distal artery lumen diameter. There is mild cervical spondylosis. IMPRESSION: 1. Normal brain. No aneurysm or significant intracranial arterial stenosis. 2. 0% stenosis of the proximal internal carotid arteries relative to normal distal artery lumen diameters (NASCET criteria). Will attempt to transfer to a stroke center for further workup and monitoring. Declined at [facility], [facility], [facility] and [facility] systems. Contacted [facility] and spoke with Dr. Birch of [facility] who agreed with admission but [facility] had no beds. Dr. Cabrera accepted at [facility] [place] at [phone] <Kevin Jurado DO - Last Filed: 01/07/25 18:36> Consultations Consultation #1: PATIENT CARE WAS TRANSFERRED TO DR. GUEVARA AT SHIFT CHANGE <Mandy Del Angel MD - Last Filed: 01/07/25 14:50> Date: 01/07/25 <Mandy Del Angel MD - Last Filed: 01/07/25 14:50> Vital Signs Vital signs: Vital Signs Oxygen Delivery Room Air 01/07/25 13:38 Temperature 97.9 F 01/07/25 17:51 Pulse Rate 89 01/07/25 17:46 Respiratory Rate 19 01/07/25 17:46 Blood Pressure 112/80 01/07/25 17:46 Pulse Oximetry 97 01/07/25 17:46 Oxygen Delivery Room Air 01/07/25 13:42 <Mandy Del Angel MD - Last Filed: 01/07/25 14:50> Vital Signs Oxygen Delivery Room Air 01/07/25 13:38 Temperature 97.9 F 01/07/25 17:51 Pulse Rate 89 01/07/25 17:46 Respiratory Rate 01/07/25 17:46 Blood Pressure 112/80 01/07/25 17:46 Pulse Oximetry 97 01/07/25 17:46 Oxygen Delivery Room Air 01/07/25 13:42 <Kevin Jurado DO - Last Filed: 01/07/25 18:36> Medical Decision Making Differential Diagnosis Differential Diagnosis: ANXIETY RELATED SYMPTOMS, TIA, ELECTROLYTE IMBALANCE, DEHYDRATION, URINARY TRACT INFECTION, HYPOGLYCEMIA, HYPOTHYROIDISM <Mandy Del Angel MD - Last Filed: 01/07/25 14:50> Vital Signs Vital Signs: Vital Signs Oxygen Delivery Room Air 01/07/25 13:38 Temperature 97.9 F 01/07/25 17:51 Pulse Rate 89 01/07/25 17:46 Respiratory Rate 01/07/25 17:46 Blood Pressure 112/80 01/07/25 17:46 Pulse Oximetry 97 01/07/25 17:46 Oxygen Delivery Room Air 01/07/25 13:42 <Mandy Del Angel MD - Last Filed: 01/07/25 14:50> Vital Signs Oxygen Delivery Room Air 01/07/25 13:38 Temperature 97.9 F 01/07/25 17:51 Pulse Rate 89 01/07/25 17:46 Respiratory Rate 01/07/25 17:46 Blood Pressure 112/80 01/07/25 17:46 Pulse Oximetry 97 01/07/25 17:46 Oxygen Delivery Room Air 01/07/25 13:42 <Kevin Jurado DO - Last Filed: 01/07/25 18:36> Lab Data Result diagrams: 01/07/25 14:09 01/07/25 14:09 <Mandy Del Angel MD - Last Filed: 01/07/25 14:50> Labs: Lab Results 01/07/25 01/07/25 01/07/25 Range/Units 13:43 13:46 14:09 WBC 13.8 H (4.8-10.8) K/mm3 RBC 4.35 (4.20-5.40) M/mm3 Hgb 13.2 (12.0-15.0) g/dL Hct 40.0 (35.0-49.0) % MCV 92.0 (78.0-102.0) fL MCH 30.3 (27.0-31.0) pg MCHC 33.0 (32-36) g/dL RDW 12.5 (11.6-14.4) % Plt Count 312 (150-420) K/mm3 MPV 9.5 (9.2-11.8) fl Immature Gran % (Auto) 0.5 H (0.0-0.0) % Neut % (Auto) 82.6 H (50.0-70.0) % Lymph % (Auto) 11.8 L (18.0-42.0) % Wharton % (Auto) 4.5 (2.0-11.0) % Eos % (Auto) 0.3 L (1.0-6.0) % Baso % (Auto) 0.3 (0.0-1.0) % Lymph # (Auto) 1.63 (1.10-4.50) K/mm3 Wharton # (Auto) 0.62 (0.10-0.90) K/mm3 Eos # (Auto) 0.04 (0.02-0.50) K/mm3 Baso # (Auto) 0.04 (0.00-0.10) K/mm3 Abs Immat Gran (auto) 0.07 H (0.00-0.00) K/mm3 Absolute Neuts (auto) 11.43 H (1.70-7.20) K/mm3 Absolute Nucleated RBC 0.00 (0.00-0.00) K/mm3 Nucleated RBC % 0.0 (0-0.0) % PT 10.7 (9.50-12.1) Seconds INR 1.0 APTT 23.1 L (23.9-30.70) Sec Sodium 143 (136-145) mmol/L Potassium 3.8 (3.5-5.1) mmol/L Chloride 107 (98-108) mmol/L Carbon Dioxide 26 (21-32) mmol/L Anion Gap 10 (4-12) mmol/L BUN 13 (7-18) mg/dL Creatinine 1.09 H (0.55-1.02) mg/dL Estim Creat Clear Calc 54 ml/min Estimated GFR 53 L (59 - ) Glucose 118 H (70-99) mg/dL Calculated Osmolality 297 H (285-295) mOsm/kg Calcium 8.8 (8.5-10.1) mg/dL Total Bilirubin 0.3 (0.00-1.00) mg/dL AST 15 (15-37) U/L ALT 32 (14-59) U/L Alkaline Phosphatase 61 (46-116) U/L Troponin I < 4.0 (0.00-60.4) ng/L Total Protein 7.1 (6.4-8.2) g/dL Albumin 3.7 (3.4-5.0) g/dL TSH 1.04 (0.36-3.74) uIU/mL Urine Color Dark yellow (Yellow) Urine Appearance Clear (Clear) Urine pH 6.0 (5.0-8.0) Ur Specific Gary >= 1.030 H (1.010-1.020) Urine Protein Negative (Negative) Urine Glucose (UA) Negative (Negative) Urine Ketones Negative (Negative) Ur Blood (Man) Negative (Negative) Urine Nitrate Negative (Negative) Urine Bilirubin 1+ H (Negative) Urine Urobilinogen 0.2 (0.2-1.0) mg/dL Leukocyte Esterase Rfl Negative (Negative) MENA/UL Urine RBC 0-2 (0-2) /hpf Urine WBC 0-3 (0-3) /hpf Ur Squamous Epith Cells Few (Few) /hpf Urine Bacteria 1+ H (None) /hpf Urine Opiates Screen Negative (Negative) Urine Methadone Screen Negative (Negative) Ur Barbiturates Screen Negative (Negative) Ur Phencyclidine Scrn Negative (Negative) Ur Amphetamine Screen Negative (Negative) U Benzodiazepines Scrn Negative (Negative) Urine Cocaine Screen Negative (Negative) U Cannabinoids Screen Negative (Negative) Ethyl Alcohol < 3 (0-6) mg/dL Influenza A (RT-PCR) Negative (Negative) Influenza B (RT-PCR) Negative (Negative) RSV (RT-PCR) Negative (Negative) SARS-CoV-2 RNA (RT-PCR) Negative (Negative) <Mandy Del Angel MD - Last Filed: 01/07/25 14:50> Lab Results 01/07/25 01/07/25 01/07/25 Range/Units 13:43 13:46 14:09 WBC 13.8 H (4.8-10.8) K/mm3 RBC 4.35 (4.20-5.40) M/mm3 Hgb 13.2 (12.0-15.0) g/dL Hct 40.0 (35.0-49.0) % MCV 92.0 (78.0-102.0) fL MCH 30.3 (27.0-31.0) pg MCHC 33.0 (32-36) g/dL RDW 12.5 (11.6-14.4) % Plt Count 312 (150-420) K/mm3 MPV 9.5 (9.2-11.8) fl Immature Gran % (Auto) 0.5 H (0.0-0.0) % Neut % (Auto) 82.6 H (50.0-70.0) % Lymph % (Auto) 11.8 L (18.0-42.0) % Wharton % (Auto) 4.5 (2.0-11.0) % Eos % (Auto) 0.3 L (1.0-6.0) % Baso % (Auto) 0.3 (0.0-1.0) % Lymph # (Auto) 1.63 (1.10-4.50) K/mm3 Wharton # (Auto) 0.62 (0.10-0.90) K/mm3 Eos # (Auto) 0.04 (0.02-0.50) K/mm3 Baso # (Auto) 0.04 (0.00-0.10) K/mm3 Abs Immat Gran (auto) 0.07 H (0.00-0.00) K/mm3 Absolute Neuts (auto) 11.43 H (1.70-7.20) K/mm3 Absolute Nucleated RBC 0.00 (0.00-0.00) K/mm3 Nucleated RBC % 0.0 (0-0.0) % PT 10.7 (9.50-12.1) Seconds INR 1.0 APTT 23.1 L (23.9-30.70) Sec Sodium 143 (136-145) mmol/L Potassium 3.8 (3.5-5.1) mmol/L Chloride 107 (98-108) mmol/L Carbon Dioxide 26 (21-32) mmol/L Anion Gap 10 (4-12) mmol/L BUN 13 (7-18) mg/dL Creatinine 1.09 H (0.55-1.02) mg/dL Estim Creat Clear Calc 54 ml/min Estimated GFR 53 L (59 - ) Glucose 118 H (70-99) mg/dL Calculated Osmolality 297 H (285-295) mOsm/kg Calcium 8.8 (8.5-10.1) mg/dL Total Bilirubin 0.3 (0.00-1.00) mg/dL AST 15 (15-37) U/L ALT 32 (14-59) U/L Alkaline Phosphatase 61 (46-116) U/L Troponin I < 4.0 (0.00-60.4) ng/L Total Protein 7.1 (6.4-8.2) g/dL Albumin 3.7 (3.4-5.0) g/dL TSH 1.04 (0.36-3.74) uIU/mL Urine Color Dark yellow (Yellow) Urine Appearance Clear (Clear) Urine pH 6.0 (5.0-8.0) Ur Specific Gary >= 1.030 H (1.010-1.020) Urine Protein Negative (Negative) Urine Glucose (UA) Negative (Negative) Urine Ketones Negative (Negative) Ur Blood (Man) Negative (Negative) Urine Nitrate Negative (Negative) Urine Bilirubin 1+ H (Negative) Urine Urobilinogen 0.2 (0.2-1.0) mg/dL Leukocyte Esterase Rfl Negative (Negative) MENA/UL Urine RBC 0-2 (0-2) /hpf Urine WBC 0-3 (0-3) /hpf Ur Squamous Epith Cells Few (Few) /hpf Urine Bacteria 1+ H (None) /hpf Urine Opiates Screen Negative (Negative) Urine Methadone Screen Negative (Negative) Ur Barbiturates Screen Negative (Negative) Ur Phencyclidine Scrn Negative (Negative) Ur Amphetamine Screen Negative (Negative) U Benzodiazepines Scrn Negative (Negative) Urine Cocaine Screen Negative (Negative) U Cannabinoids Screen Negative (Negative) Ethyl Alcohol < 3 (0-6) mg/dL Influenza A (RT-PCR) Negative (Negative) Influenza B (RT-PCR) Negative (Negative) RSV (RT-PCR) Negative (Negative) SARS-CoV-2 RNA (RT-PCR) Negative (Negative) <Kevin Jurado DO - Last Filed: 01/07/25 18:36> ECG Data EKG #1: Attestation: I personally reviewed and interpreted this ECG as follows: <Mandy Del Angel MD - Last Filed: 01/07/25 14:50> ECG completion date: 01/07/25 <Mandy Del Angel MD - Last Filed: 01/07/25 14:50> Interpretation: NORMAL SINUS RHYTHM AT 96 BEATS PER MINUTE, EARLY PRECORDIAL R/ S TRANSITION, BORDERLINE EKG, NO PREVIOUS EKG AVAILABLE FOR COMPARISON <Mandy Del Angel MD - Last Filed: 01/07/25 14:50> Critical Care Time Critical Care Time Critical Care Time: No <Mandy Del Angel MD - Last Filed: 01/07/25 14:50> Discharge Plan Discharge Clinical Impression: Altered mental status <Mandy Del Angel MD - Last Filed: 01/07/25 14:50> Patient Disposition: Acute Care Hospital <Mandy Del Angel MD - Last Filed: 01/07/25 14:50> Condition: Serious <Mandy Del Angel MD - Last Filed: 01/07/25 14:50> Patient Language: Mohawk <Mandy Del Angel MD - Last Filed: 01/07/25 14:50> Prescriptions: No Action acyclovir 400 mg tablet 400 mg PO DAILY alprazolam 0.25 mg tablet 0.25 mg PO DAILY PRN (Reason: Anxiety) amlodipine 10 mg tablet 10 mg PO DAILY buspirone 10 mg tablet 10 mg PO BID losartan 25 mg tablet 25 mg PO DAILY rosuvastatin 20 mg tablet 20 mg PO DAILY quetiapine 25 mg tablet 25 mg PO BID pantoprazole 40 mg tablet,delayed release (DR/EC) 40 mg PO DAILY <Mandy Del Angel MD - Last Filed: 01/07/25 14:50> Follow-up/Referrals: Rell Bautista MD [Primary Care Provider] - <Mandy Del Angel MD - Last Filed: 01/07/25 14:50> Quality Stroke Scale Stroke Scale 1: Stroke scale date:: 01/07/25 <Mandy Del Angel MD - Last Filed: 01/07/25 14:50> 1a Level of consciousness: alert-0 <Mandy Del Angel MD - Last Filed: 01/07/25 14:50> 1b Level of consciousness questions: answers both correctly-0 <Mandy Del Angel MD - Last Filed: 01/07/25 14:50> 1c Level of consciousness commands: obeys both correctly-0 <Mandy Del Angel MD - Last Filed: 01/07/25 14:50> 2 Best gaze: normal-0 <Mandy Del Angel MD - Last Filed: 01/07/25 14:50> 3 Visual: no visual loss-0 <Mandy Del Angel MD - Last Filed: 01/07/25 14:50> 4 Facial palsy: normal-0 <Mandy Del Angel MD - Last Filed: 01/07/25 14:50> 5a Motor: left arm: no drift-0 <Mandy Del Angel MD - Last Filed: 01/07/25 14:50> 5b Motor: right arm: no drift-0 <Mandy Del Angel MD - Last Filed: 01/07/25 14:50> 6a Motor: left leg: no drift-0 <Mandy Del Angel MD - Last Filed: 01/07/25 14:50> 6b Motor: right leg: no drift-0 <Mandy Del Angel MD - Last Filed: 01/07/25 14:50> 7 Limb ataxia: absent-0 <Mandy Del Angel MD - Last Filed: 01/07/25 14:50> 8 Sensory: normal-0 <Mandy Del Angel MD - Last Filed: 01/07/25 14:50> 9 Best language: no aphasia-0 <Mandy Del Angel MD - Last Filed: 01/07/25 14:50> 10 Dysarthria: normal-0 <Mandy Del Angel MD - Last Filed: 01/07/25 14:50> 11 Extinction and inattention: no abnormality-0 <Mandy Del Angel MD - Last Filed: 01/07/25 14:50> Level:: 0 <Mandy Del Angel MD - Last Filed: 01/07/25 14:50> 0 <Kevin Jurado DO - Last Filed: 01/07/25 18:36>
[2025-01-07 13:59] LABS: Add Urine Microscopic? YES; Appearance Urine Clear (Clear); Bilirubin Urine 1+ (Negative); Blood Urine Negative (Negative); Color Urine Dark Yellow (Yellow); Glucose Urine UA Negative (Negative); Ketones Urine Negative (Negative); Leukocyte Esterase Ur Negative LEU/UL (Negative); Nitrate Urine Negative (Negative); Protein Urine Negative (Negative); Specific Grav Ur >= 1.030 (1.010-1.020); Urobilinogen Urine 0.2 mg/dL (0.2-1.0)
[2025-01-07 14:04] LABS: RBC Urine 0-2 /hpf (0-2); Squamous Epithelial Cell Urine Few /hpf (Few); WBC Urine 0-3 /hpf (0-3)
[2025-01-07 14:05] LABS: Bacteria Urine 1+ /hpf
[2025-01-07 14:18] LABS: Basophils Absolute Auto 0.04 K/mm3 (0.00-0.10); Basophils Percent Auto 0.3 % (0.0-1.0); Eosinophils Absolute Auto 0.04 K/mm3 (0.02-0.50); Eosinophils Percent Auto 0.3 % (1.0-6.0); Hemoglobin 13.2 g/dL (12.0-15.0); Immature Granulocyte Absolute 0.07 K/mm3 (0.00-0.00); Immature Granulocyte Percent A 0.5 % (0.0-0.0); Lymphocytes Absolute Auto 1.63 K/mm3 (1.10-4.50); Lymphocytes Percent Auto 11.8 % (18.0-42.0); Mean Corpuscular Hemoglobin 30.3 pg (27.0-31.0); Mean Platelet Volume 9.5 fl (9.2-11.8); Monocytes Absolute Auto 0.62 K/mm3 (0.10-0.90); Monocytes Percent Auto 4.5 % (2.0-11.0); Neutrophils Absolute Auto 11.43 K/mm3 (1.70-7.20); Neutrophils Percent Auto 82.6 % (50.0-70.0); Platelet Count Result 312 K/mm3 (150-420); Red Blood Count 4.35 M/mm3 (4.20-5.40); Red Cell Distribution Width 12.5 % (11.6-14.4); White Blood Count 13.8 K/mm3 (4.8-10.8)
--- OUTSIDE RECORDS SUMMARY | 2025-01-07 14:21 | XMS_ITS | Clinical Summary ---
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 Hx Other Medical 03-ENT Hx Other Medical [...] on file Legal Sex Female 11:54 PM ASSESSMENT EXPERT Gender Identity Female 08/03/2021 12:38 PM CDT Sexual Orientation Straight 08/03/2021 12 :38 PM CDT Obstetrics History Last Filed Vital Signs Vital Sign Reading Time Taken Comments Blood Pressure 142/86 10/08/2018 4:35 PM ASSESSMENT EXPERT Pulse 104 10/08/2018 4:35 PM ASSESSMENT EXPERT Temperature 36.9 C (98.4 F) 08/03/2021 4:17 PM CDT Respiratory Rate 18 10/08/2018 4:35 PM ASSESSMENT EXPERT Oxygen Saturation 96% 10/08/2018 4:35 PM ASSESSMENT EXPERT Inhaled Oxygen Concentration - - Weight 81.6 kg (180 lb) 08/03/2021 4:17 PM CDT Height 157.5 cm (5' 2 ) 08/03/2021 4:17 PM CDT Body Mass Index 32.92 08/03/2021 4:17 PM CDT Plan of Treatment Not on file Insurance [facility] CHOICE PLUS [facility] CHOICE PLUS Care Teams Electron Microprobe Operator Relationship Specialty Start Date End Date Rell Bautista MD [address] [phone] PCP - General Internal Medicine 07/29/21
--- OUTSIDE RECORDS SUMMARY | 2025-01-07 14:21 | XMS_ITS | Referral Summary ---
Author Organization [facility] Medical Office Building A Address [address] [place] [address] Care Team Providers Care Elementary Science Teacher Name Role Phone Rell Bautista MD Primary Care Provider [phone] Allergies No known active allergies Medications HYDROcodone-vicente [...] on file Legal Sex Female 11:54 PM PLATE SETTER Gender Identity Female 08/03/2021 12:38 PM CDT Sexual Orientation Straight 08/03/2021 12 :38 PM CDT Last Filed Vital Signs Vital Sign Reading Time Taken Comments Blood Pressure 142/86 10/08/2018 4:35 PM PLATE SETTER Pulse 104 10/08/2018 4:35 PM PLATE SETTER Temperature 36.9 C (98.4 F) 08/03/2021 4:17 PM CDT Respiratory Rate 18 10/08/2018 4:35 PM PLATE SETTER Oxygen Saturation 96% 10/08/2018 4:35 PM PLATE SETTER Inhaled Oxygen Concentration - - Weight 81.6 kg (180 lb) 08/03/2021 4:17 PM CDT Height 157.5 cm (5' 2 ) 08/03/2021 4:17 PM CDT Body Mass Index 32.92 08/03/2021 4:17 PM CDT Plan of Treatment Not on file Insurance [facility] CHOICE PLUS [facility] CHOICE PLUS Care Teams Elementary Science Teacher Relationship Specialty Start Date End Date Rell Bautista MD [address] [place] [address] PCP - General Internal Medicine 07/29/21
[2025-01-07 14:31] LABS: Partial Thromboplastin Time 23.1 Sec (23.9-30.70); Prothrombin Time 10.7 Seconds (9.50-12.1)
[2025-01-07 14:33] LABS: Amphetamine Screen Urine Negative (Negative); Barbiturate Screen Urine Negative (Negative); Benzodiazepines Screen Urine Negative (Negative); Cannabinoid Screen Urine Negative (Negative); Cocaine Screen Urine Negative (Negative); Methadone Screen Urine Negative (Negative); Opiate Screen Urine Negative (Negative); Phencyclidine Screen Urine Negative (Negative)
[2025-01-07 14:35] LABS: Influenza A QL RT-PCR Negative (Negative); Influenza B QL RT-PCR Negative (Negative); RSV RNA, RT-PCR Negative (Negative); SARS-CoV-2 RNA PCR Negative (Negative)
[2025-01-07 14:36] LABS: Alanine Aminotransferase 32 U/L (14-59); Albumin Level 3.7 g/dL (3.4-5.0); Alkaline Phosphatase 61 U/L (46-116); Anion Gap 10 mmol/L (4-12); Aspartate Amino Transferase 15 U/L (15-37); Bilirubin,Total 0.3 mg/dL (0.00-1.00); Blood Urea Nitrogen 13 mg/dL (7-18); Calcium 8.8 mg/dL (8.5-10.1); Carbon Dioxide 26 mmol/L (21-32); Chloride 107 mmol/L (98-108); Estimated CRCL calculation 54 ml/min; Estimated Glomerular Filt Rate 53; Glucose 118 mg/dL (70-99); Osmolality Calculated 297 mOsm/kg (285-295); Potassium 3.8 mmol/L (3.5-5.1); Sodium 143 mmol/L (136-145); Total Protein 7.1 g/dL (6.4-8.2)
[2025-01-07 14:38] LABS: Ethanol < 3 mg/dL (0-6); Troponin I < 4.0 ng/L (0.00-60.4)
[2025-01-07 14:41] LABS: Thyroid Stimulating Hormone 1.04 uIU/mL (0.36-3.74)
--- NOTE | 2025-01-07 14:41 | PC.NURSE ---
PT IS SITTING UP ON STRETCHER WITH AT BEDSIDE. PT IS AWAITING REPEAT CT AND LAB RESULTS. NAD NOTED. ALL NEURO SX HAVE RESOLVED. PT REPORTS SHE DOES NOT WANT TO BE TRANSFERRED, THAT SHE WILL FOLLOW UP WITH DR JORGE AND HE CAN REFER HER TO NEUROLOGY WHEN SHE GETS BACK FROM HER TRIP. ADVISED PT TO AWAIT RESULTS AND FURTHER TESTING BEFORE MAKING THE DECISION. SHE VERBALIZED UNDERSTANDING. VSS PER MONITOR. WILL CONTINUE TO MONITOR.
--- NOTE | 2025-01-07 14:57 | PC.NURSE ---
PT IS RETURNING FROM CT AT THIS TIME.
--- NOTE | 2025-01-07 15:35 | PC.NURSE ---
PT REPORTS SX HAVE RESOLVED, AT BEDSIDE. PT IS AWAITING DECISION AT THIS TIME. WILL CONTINUE TO MONITOR.
--- NOTE | 2025-01-07 16:02 | PC.NURSE ---
PT REPORTS ALL SYMPTOMS HAVE RESOLVED, NO FURTHER BRAIN FOG, DIZZINESS, OR CONFUSION. PT DECLINES FURTHER CARE OR TRANSFER TO ANOTHER FACILITY. IS AT BEDSIDE AND AWARE OF PT'S PLAN OF CARE. ERP IS AWARE.
--- NOTE | 2025-01-07 18:02 | PC.NURSE ---
PT IS AGREEABLE TO TRANSFER TO [facility]. IS AT BEDSIDE AND IS AWARE OF ROOM ASSIGNMENT. PT IS AWAITING EMS FOR TRANSPORT. PT IS READING ON HER FAUSTO WITHOUT DIFFICULTY AT THIS TIME. WILL CONTINUE TO MONITOR.
== END 2025-01-07 18:14 | disposition short-term general hospital (02) ==
PROVIDERS: Emergency Medicine; Emergency Provider Family Medicine; PCP Internal Medicine
DX: R41.82 Altered mental status, unspecified (principal); I10 Essential (primary) hypertension; E78.5 Hyperlipidemia, unspecified; F32.A Depression, unspecified; F41.9 Anxiety disorder, unspecified; Z20.822 Contact with and (suspected) exposure to COVID-19; Z79.899 Other long term (current) drug therapy
CPT/HCPCS: 36415; 70450; 70496; 70498; 71045; 80053; 80307; 81001; 82077; 84443; 84484; 85025; 85610; 85730; 87637; 93005; 99285; Q9967

== ENCOUNTER 2025-02-06 10:15 | Emergency (ER) | payer OTHER, SELFPAY ==
[2025-02-06] VITALS (7 sets, daily range): BP systolic 117–123; BP diastolic 60–78; PULSE 91–98; RESP 20; TEMP 36.6–36.7; O2SAT 97–100
--- NOTE | ~2025-02-06 | CT_ITS ---
CT brain wo con Ordering provider: Kofi Tejada MD History: 49 years Female with . slurred speech/DELAYED SPEECH,DIZZY,LT LEG HEAVY,SINCE 0900 . Comparison: None. Technique: CT of the head without contrast. Radiation reduction technique utilized. The dose-length p roduct was 605.33 mGy-cm. FINDINGS: BRAIN PARENCHYMA AND CSF SPACES: No midline shift, mass effect or hemorrhage. The brain parenchyma a nd CSF spaces are otherwise normal. VISUALIZED PARANASAL SINUSES: Well aerated. MASTOIDS: Well aerated. BONES: The bones appear intact. SOFT TISSUES: Visualized nasopharynx is normal. Superficial soft tissues are normal. IMPRESSION: No acute intracranial findings. Reviewed, dictated and finalized at location A.
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
--- OUTSIDE RECORDS SUMMARY | 2025-02-06 10:59 | XMS_ITS | Clinical Summary ---
Author Organization [facility] Address [address] [place] [address] Care Team Providers Care [employer] Repairer Name Role Phone Rell Bautista MD Primary Care Provider [phone] Source Comments [facility],non-owned Affiliates and Associated Physician Practices is amultiple site organization consisting of ambulatory clinics and hospital sitesin [place], [place], [place] and [place]. This disclosure is being madepursuant to the Care Everywhere program and may not contain all information available regarding this patient. Last updated 18.[facility] Allergies No known active allergies Medications * Be aware that medications may not be up to date on this document. Alwaysverify current medications with the patient. Medication Sig Dispensed Refills Start Date End Date Status QUEtiapine (SEROquel) 25 MG tablet Take 1 (one) tablet by mouth 2 times daily Active busPIRone (Buspar) 10 MG tablet Take 1 (one) tablet by mouth 2 times daily Active pantoprazole EC (Protonix) 40 MG tablet Take 1 (one) tablet by mouth 2 times daily Active rosuvastatin (Crestor) 20 MG tablet Take 1 (one) tablet by mouth once daily Active buPROPion XL 24hr (Wellbutrin-XL) 300 MG tablet Take 1 (one) tablet by mouth every morning Active amLODIPine (Norvasc) 10 MG tablet Take 1 (one) tablet by mouth once daily Active acyclovir (Zovirax) 400 MG tablet Take 1 (one) tablet by mouth once daily Active losartan (Cozaar) 25 MG tablet Take 1 (one) tablet by mouth once daily Active Active Problems Problem Noted Date Diagnosed Date Altered mental status, unspe cified altered mental status type 01/07/2025 Encounters Date Type Department Care Team Description 01/07/2025 7:22 PM PIGMENT SUPPLIER - 01/08/2025 5:38 PM PIGMENT SUPPLIER Hospital Encounter [facility] 7S TELE/NEURO [address] [place] [address] Tiarra Cabrera MD Arekooti, Hasita, MD Sampath, Roshni, MD Hospitalist Discharge Disposition: Home or Self Care 01/07/2025 Travel from Last 3 Months Social History Tobacco Use Types Packs/Day Years Used Date Smoking Tobacco: Never Assessed AUDIT-C Answer Date Recorded Q1: How often do you have a drink containing alc ohol? 2-4 times a month 01/07/2025 Q2: How many drinks containi ng alcohol do you have on a typical day when you are drinking? 1 or 2 01/07/2025 Q3: How often do you have si x or more drinks on one occasion? Never 01/07/2025 Overall Financial Resource Strain (CARDIA) Answe r Date Recorded How hard is it for you to pa y for the very basics like food, housing, medical care, and heating? Not hard at all 01/07/2025 [facility] - Occupational Stress Questionnaire Answer Date Recorded Do you feel stress - tense, restless, nervous, or anxious, or unable to sleep at night because your mind is troubled all the time - these days? To some extent 01/07/2025 Hunger Vital Sign Answer Date Recorded Within the past 12 months, y ou worried that your food would run out before you got the money to buy more. Never true 01/07/20 25 Within the past 12 months, t he food you bought just didn't last and you didn't have money to get more. Never true 01/07/2025 PRAPARE - Transportation Answer Date Re corded In the past 12 months, has l ack of transportation kept you from medical appointments or from getting medications? No 12/21 In the past 12 months, has l ack of transportation kept you from meetings, work, or from getting things needed for daily living? No 01/07/2025 Housing Stability Vital Sign Answer Hamzah e Recorded In the last 12 months, was t here a time when you were not able to pay the mortgage or rent on time? No 01/07/2025 In the past 12 months, how m any times have you moved where you were living? 0 01/07/2025 At any time in the past 12 m [facility], were you homeless or living in a intermediate (including now)? No 01/07/2025 Sex and Gender Information Value Date Recorded Sex Assigned at Not on file Gender Identity Not on file Sexual Orientation Not on file Last Filed Vital Signs Vital Sign Reading Time Taken Comments Blood Pressure 146/90 01/08/2025 3:29 PM PIGMENT SUPPLIER Pulse 84 01/08/2025 3:29 PM PIGMENT SUPPLIER Temperature 37.2 C (99 F) 01/08/2025 3:29 PM PIGMENT SUPPLIER Respiratory Rate 18 01/08/2025 3:29 PM PIGMENT SUPPLIER Oxygen Saturation 94% 01/08/2025 3:29 PM PIGMENT SUPPLIER Inhaled Oxygen Concentration - - Weight 76.7 kg (169 lb) 01/08/2025 1:02 PM PIGMENT SUPPLIER Height 160 cm (5' 3 ) 01/08/2025 1:02 PM PIGMENT SUPPLIER Body Mass Index 29.94 01/08/2025 1:02 PM PIGMENT SUPPLIER Plan of Treatment Health Maintenance Due Date Last Done Comments COLOGUARD (AGES 45-75) - COL ON CA SCREENING 1975 COLON MONITORING 1974 COLONOSCOPY - COLON CA SCREENING 1974 CT COLONOGRAPHY - COLON CA SCREENING 1975 Colorectal Cancer Screening 1974 FIT - COLON CA SCREENING 1974 FLEX SIG - COLON CA SCREENING 1974 MAMMOGRAM 1974 HIV SCREENING 1989 HEPATITIS C SCREENING 04/22/1992 DTAP/TDAP/TD VACCINES (1 - Tdap) 1993 HEPATITIS B VACCINE (1 of 3 - 19+ 3-dose series) 1993 PAP SMEAR 09/13/2020 09/13/2017 PNEUMOCOCCAL VACCINE 50+ (1 of 1 - PCV) 2024 ZOSTER VACCINE (1 of 2) 2024 COVID-19 VACCINE (1 - 2023-2 5 season) 2024 INFLUENZA VACCINE (#1) 2024 DEPRESSION SCREENING 11/20/2024 HIB VACCINE Aged Out No longer eligi ble based on patient's age to complete this topic HPV VACCINE Aged Out No longer eligi ble based on patient's age to complete this topic MENINGOCOCCAL (Group B) VACC INE SHARED DECISION-MAKING Aged Out No longer eligibl e based on patient's age to complete this topic MENINGOCOCCAL GROUPS A/C/Y/W VACCINE Aged Out No longer eligible b ased on patient's age to complete this topic Procedures Procedure Name Priority Date/Time Associated Diagnosis Comments ECHO COMPLETE W BUBBLE STUDY PENDING DISCHARGE 01/08/2025 3:44 PM PIGMENT SUPPLIER Altered mental status, unspecified altered mental status type MRI BRAIN WO CONTRAST Routine 01/08/2025 10:00 AM PIGMENT SUPPLIER Transient alteration of awareness Altered mental status, unspecified altered mental status type Slurred speech URINE DRUG SCREEN IMMUNOASSAY Add on 01/08/2025 9:33 AM PIGMENT SUPPLIER URINALYSIS REFLEX MICROSCOPIC REFLEX CULTURE Routine 01/08/2025 9:33 AM PIGMENT SUPPLIER PT EVAL AND TREAT Routine 01/08/2025 8:2 5 AM PIGMENT SUPPLIER OT EVAL AND TREAT Routine 01/08/2025 8:2 5 AM PIGMENT SUPPLIER PT EVAL AND TREAT Routine 01/08/2025 7:2 6 AM PIGMENT SUPPLIER GLUCOSE - POINT OF CARE Routine 01/07/2025 9:26 PM PIGMENT SUPPLIER URINALYSIS REFLEX TO MICROSCOPIC NO CULTURE Routine 01/07/2025 9:20 PM PIGMENT SUPPLIER LIPID PROFILE Add on 01/07/2025 9:13 PM PIGMENT SUPPLIER HEMOGLOBIN A1C Add on 01/07/2025 9:13 PM PIGMENT SUPPLIER CBC W/O DIFFERENTIAL Routine 01/07/2025 9:13 PM PIGMENT SUPPLIER BASIC METABOLIC PANEL (CALCIUM TOTAL) Routine 01/07/2025 9:13 PM PIGMENT SUPPLIER from Last 3 Months Results * ECHO COMPLETE W BUBBLE STUDY (01/08/2025 3:44 PM PIGMENT SUPPLIER) Pathologist [facility] Dimensionless Index 0.811 unitless SSM CV FUJI PACS Myocardial strain charge 2 unitless SSM CV FUJI PACS LV biplane EF 67.906 % SSM CV FUJI PACS LV A2C EF 65.965 % SSM CV FUJ I PACS LV A4C EF 68.918 % SSM CV FUJ I PACS LVOT diam 2.26 cm SSM CV FUJ I PACS LV EDV A2C 62.858 ml SSM CV FU JI PACS LV EDV A4C 71.903 ml SSM CV FU JI PACS LV ESV A2C 21.394 ml SSM CV FU JI PACS LV ESV A4C 22.349 ml SSM CV FU JI PACS LVOT pk manjinder 126.002 cm/s SSM CV F UJI PACS LVOT VTI 26.962 cm SSM CV FUJ I PACS RA area 11.742 cm SSM CV FUJI PACS AV mn grad 6.205 mmHg SSM CV FU JI PACS AV pk manjinder 168.55 cm/s SSM CV FUJ I PACS AV VTI 33.252 cm SSM CV FUJ I PACS MV A pk manjinder 62.07 cm/s SSM CV F UJI PACS MV E pk manjinder 67.883 cm/s SSM CV F UJI PACS MV E' lateral manjinder 10.916 cm/s SS M CV FUJI PACS MV pk manjinder regurg 535.984 cm/s SSM CV FUJI PACS MR VTI 190.608 cm SSM CV FUJ I PACS PV pk manjinder 96.593 cm/s SSM CV FUJ I PACS TAPSE 1.44 cm SSM CV FUJ I PACS Anatomical Region Laterality Modality Ultrasound 01/08/2025 2:34 PM PIGMENT SUPPLIER Narrative 01/08/2025 4:49 PM PIGMENT SUPPLIER Summary * The left ventricle is normal in size. * Left ventricular systolic function is normal with an estimated ejection fraction of 60-65% by visual estimate. * Left ventricular segmental wall motion is normal. * The left ventricular mass is normal. * The left ventricular diastolic function is normal. * The right ventricle is normal in size. * Right ventricular systolic function is normal. * The left atrium is normal in size. * The right atrium is normal in size. * Patent foramen ovale (PFO) with moderate right to left shunting by agitated saline. * There is no significant mitral valve regurgitation. * There is no significant tricuspid valve regurgitation. * The pulmonary artery systolic pressure is normal, 30 mmHg. Patient Info Name: Eliana Bedolla Age: 49 years : 1975 Gender: Female Ht: 63 in Wt: 169 lb BSA: 1.87 m2 HR: 70 bpm Exam Date: 01/08/2025 2:34 PM Patient Status: I/P Study Site: [facility] Primary Location: [facility] EStudy Info Exam Type: ECHO COMPLETE W BUBBLE STUDY Indications R41.82 - Altered mental status, unspecified altered mental status type Procedure(s) * A complete 2D, color Doppler, spectral Doppler, and M-Mode transthoracic echocardiogram was performed. Contrast/Agitated Saline Contrast / Saline: Agitated Saline Amount: --- ml Staff Referring Physician: Lyubov Mercer Ordering Provider: Lyubov Mercer Attending Physician: Lyubov Mercer Construction Technology Instructor: Jonathan Au Left Ventricle The left ventricle is normal in size. Left ventricular systolic function is normal with an estimated ejection fraction of 60-65% by visual estimate. Left ventricular segmental wall motion is normal. The left ventricular mass is normal. The left ventricular diastolic function is normal. Right Ventricle The right ventricle is normal in size. Right ventricular systolic function is normal. Left Atrium The left atrium is normal in size. Right Atrium The right atrium is normal in size. Atrial Septum Patent foramen ovale (PFO) with moderate right to left shunting by agitated saline. Aortic Valve The aortic valve is trileaflet. There is no aortic valve stenosis. There is no aortic valve regurgitation. Pulmonic Valve The pulmonic valve is normal. There is no pulmonic valve stenosis. There is no pulmonic regurgitation. Mitral Valve The mitral valve is normal. There is no mitral valve stenosis. There is no significant mitral valve regurgitation. Tricuspid Valve The tricuspid valve is normal. There is no significant tricuspid valve regurgitation. The pulmonary artery systolic pressure is normal, 30 mmHg. Inferior Vena Cava The inferior vena cava is normal in size (< 2.1 cm). There is > 50% collapse of the IVC upon inspiration with an estimated right atrial pressure of 3 mmHg. Pericardium/Pleural There is no pericardial effusion. Aorta The aortic root at the sinus of Valsalva is normal in size. The ascending aorta is normal in size. Measurements Left Ventricular Outflow Tract Name Value Normal LVOT 2D LVOT Diameter 2.3 cm LVOT Area 4.0 cm2 LVOT Doppler LVOT Peak Velocity 1.3 m/s LVOT Peak Gradient 6 mmHg LVOT Mean Velocity 93.52 cm/s LVOT Mean Gradient 4 mmHg LVOT VTI 27.0 cm LVOT VTI/AV VTI Ratio 0.8 LVOT Stroke Volume 108 ml LVOT Stroke Volume Index 58 ml/m2 35-58 LVOT CO 7.6 l/min LVOT CI 4.1 l/min/m2 Pulmonic Valve Name Value Normal PV Doppler PV Peak Velocity 1.0 m/s PV Peak Gradient 4 mmHg Mitral Valve Name Value Normal MV Doppler MV PHT 71 ms MV Area (PHT) 3.09 cm2 4.00-5.00 MV Diastolic Function MV E Peak Velocity 0.7 m/sec MV A Peak Velocity 0.6 m/sec MV E/A 1.1 MV Decel Time (PW) 293 ms MV Annular TDI MV Septal e' Velocity 9 cm/s >=8 MV E/e' (Septal) 8 <=8 MV Lateral e' Velocity 11 cm/s >=10 MV E/e' (Lateral) 6 <=8 MV e' Average 10 cm/s MV E/e' (Average) 7 Tricuspid Valve Name Value Normal Estimated PAP/RSVP RA Pressure 3 mmHg <=5 PA Systolic Pressure 30 mmHg <35 Aorta Name Value Normal Ascending Aorta Ao Root Diameter (MM) 3.0 cm Ao Root Diam Index (MM) 1.6 cm/m2 Aortic Valve Name Value Normal AV 2D/MM AV Cusp Sep (MM) 1.6 cm AV Doppler AV Peak Velocity 1.69 m/s AV Peak Gradient 11 mmHg AV Mean Gradient 6 mmHg AV VTI 33 cm AV Area (Cont Eq VTI) 3.25 cm2 >=2.00 AV Area (Cont Eq Manjinder) 3.00 cm2 AV DI (VTI) 0.81 AV DI (Manjinder) 0.75 AV Regurgitation 2D LVOT Area 4.01 cm2 Ventricles Name Value Normal LV Dimensions 2D/MM IVS Diastole Thickness (MM) 0.8 cm 0.6-0.9 LVID Diastole (MM) 5.4 cm 3.8-5.2 LVPW Diastolic Thickness (MM) 0.9 cm 0.6-0.9 IVS Systolic Thickness (MM) 0.8 cm LVID Systole (MM) 4.2 cm 2.2-3.5 LVPW Systolic Thickness (MM) 1.4 cm LV Mass (MM Cubed) 167 g 67-162 LV Mass Index (MM Cubed) 89 g/m2 43-95 Relative Wall Thickness (MM) 0.32 LV Fractional Shortening/Ejection Fraction 2D/MM LV Fractional Shortening (MM) 23 % 27-45 LV EF (MM Teicholz) 46 % 54-74 LV Diastolic Volume (4C MOD) 72 ml LV EF (4C MOD) 69 % LV Diastolic Volume (2C MOD) 63 ml LV EF (2C MOD) 66 % LV Diastolic Volume (BP MOD) 68 ml 46-106 LV Diastolic Volume Index (BP MOD) 37 ml/m2 29-61 LV Systolic Volume (BP MOD) 22 ml 14-42 LV Systolic Volume Index (BP MOD) 12 ml/m2 8-24 LV EF (BP MOD) 68 % 54-74 LV Diastolic Length (4C) 7.8 cm LV Systolic Length (4C) 6.3 cm LV Stroke Volume (4C MOD) 50 ml RV Dimensions 2D/MM TAPSE 1.4 cm >=1.7 Atria Name Value Normal LA Dimensions LA Dimension (MM) 3.6 cm 2.7-3.8 RA Dimensions RA Area (4C) 12 cm2 <=18 RA Area (4C) Index 6 cm2/m2 RA ESV (4C MOD) 26 ml 15-27 RA ESV Index (4C MOD) 14 ml/m2 16-34 Report Signatures Finalized by Willis Alan on 01/08/2025 04:49 PM Procedure Note Willis Alan MD - 01/08/2025 Summary * The left ventricle is normal in size. * Left ventricular systolic function is normal with an estimatedejection fraction of 60-65% by visual estimate. * Left ventricular segmental wall motion is normal. * The left ventricular mass is normal. * The left ventricular diastolic function is normal. * The right ventricle is normal in size. * Right ventricular systolic function is normal. * The left atrium is normal in size. * The right atrium is normal in size. * Patent foramen ovale (PFO) with moderate right to left shunting by agitated saline. * There is no significant mitral valve regurgitation. * There is no significant tricuspid valve regurgitation. * The pulmonary artery systolic pressure is normal, 30 mmHg. Patient Info Name: Eliana Bedolla Age: 49 years : 1975 Gender: Female Ht: 63 in Wt: 169 lb BSA: 1.87 m2 HR: 70 bpm Exam Date: 01/08/2025 2:34 PM Patient Status: I/P Study Site: [facility] Primary Location: [facility] EStudy Info Exam Type: ECHO COMPLETE W BUBBLE STUDY Indications R41.82 - Altered mental status, unspecified altered mental statustype Procedure(s) * A complete 2D, color Doppler, spectral Doppler, and M-Modetransthoracic echocardiogram was performed. Contrast/Agitated Saline Contrast / Saline: Agitated Saline Amount: --- ml Staff Referring Physician: Lyubov Mercer Ordering Provider: Lyubov Mercer Attending Physician: Lyubov Mercer Construction Technology Instructor: Jonathan Au Left Ventricle The left ventricle is normal in size. Left ventricular systolic functionis normal with an estimated ejection fraction of 60-65% by visual estimate.Left ventricular segmental wall motion is normal. The left ventricular massis normal. The left ventricular diastolic function is normal. Right Ventricle The right ventricle is normal in size. Right ventricular systolicfunction is normal. Left Atrium The left atrium is normal in size. Right Atrium The right atrium is normal in size. Atrial Septum Patent foramen ovale (PFO) with moderate right to left shunting byagitated saline. Aortic Valve The aortic valve is trileaflet. There is no aortic valve stenosis. Thereis no aortic valve regurgitation. Pulmonic Valve The pulmonic valve is normal. There is no pulmonic valve stenosis. Thereis no pulmonic regurgitation. Mitral Valve The mitral valve is normal. There is no mitral valve stenosis. There isno significant mitral valve regurgitation. Tricuspid Valve The tricuspid valve is normal. There is no significant tricuspid valve regurgitation. The pulmonary artery systolic pressure is normal, 30mmHg. Inferior Vena Cava The inferior vena cava is normal in size (< 2.1 cm). There is > 50%collapse of the IVC upon inspiration with an estimated right atrial pressure of 3mmHg. Pericardium/Pleural There is no pericardial effusion. Aorta The aortic root at the sinus of Valsalva is normal in size. Theascending aorta is normal in size. Measurements Left Ventricular Outflow Tract Name Value Normal LVOT 2D LVOT Diameter 2.3 cm LVOT Area 4.0 cm2 LVOT Doppler LVOT Peak Velocity 1.3 m/s LVOT Peak Gradient 6 mmHg LVOT Mean Velocity 93.52 cm/s LVOT Mean Gradient 4 mmHg LVOT VTI 27.0 cm LVOT VTI/AV VTI Ratio 0.8 LVOT Stroke Volume 108 ml LVOT Stroke Volume Index 58 ml/m2 35-58 LVOT CO 7.6 l/min LVOT CI 4.1 l/min/m2 Pulmonic Valve Name Value Normal PV Doppler PV Peak Velocity 1.0 m/s PV Peak Gradient 4 mmHg Mitral Valve Name Value Normal MV Doppler MV PHT 71 ms MV Area (PHT) 3.09 cm2 4.00-5.00 MV Diastolic Function MV E Peak Velocity 0.7 m/sec MV A Peak Velocity 0.6 m/sec MV E/A 1.1 MV Decel Time (PW) 293 ms MV Annular TDI MV Septal e' Velocity 9 cm/s >=8 MV E/e' (Septal) 8 <=8 MV Lateral e' Velocity 11 cm/s >=10 MV E/e' (Lateral) 6 <=8 MV e' Average 10 cm/s MV E/e' (Average) 7 Tricuspid Valve Name Value Normal Estimated PAP/RSVP RA Pressure 3 mmHg <=5 PA Systolic Pressure 30 mmHg <35 Aorta Name Value Normal Ascending Aorta Ao Root Diameter (MM) 3.0 cm Ao Root Diam Index (MM) 1.6 cm/m2 Aortic Valve Name Value Normal AV 2D/MM AV Cusp Sep (MM) 1.6 cm AV Doppler AV Peak Velocity 1.69 m/s AV Peak Gradient 11 mmHg AV Mean Gradient 6 mmHg AV VTI 33 cm AV Area (Cont Eq VTI) 3.25 cm2 >=2.00 AV Area (Cont Eq Manjinder) 3.00 cm2 AV DI (VTI) 0.81 AV DI (Manjinder) 0.75 AV Regurgitation 2D LVOT Area 4.01 cm2 Ventricles Name Value Normal LV Dimensions 2D/MM IVS Diastole Thickness (MM) 0.8 cm 0.6-0.9 LVID Diastole (MM) 5.4 cm 3.8-5.2 LVPW Diastolic Thickness (MM) 0.9 cm 0.6-0.9 IVS Systolic Thickness (MM) 0.8 cm LVID Systole (MM) 4.2 cm 2.2-3.5 LVPW Systolic Thickness (MM) 1.4 cm LV Mass (MM Cubed) 167 g 67-162 LV Mass Index (MM Cubed) 89 g/m2 43-95 Relative Wall Thickness (MM) 0.32 LV Fractional Shortening/Ejection Fraction 2D/MM LV Fractional Shortening (MM) 23 % 27-45 LV EF (MM Teicholz) 46 % 54-74 LV Diastolic Volume (4C MOD) 72 ml LV EF (4C MOD) 69 % LV Diastolic Volume (2C MOD) 63 ml LV EF (2C MOD) 66 % LV Diastolic Volume (BP MOD) 68 ml 46-106 LV Diastolic Volume Index (BP MOD) 37 ml/m2 29-61 LV Systolic Volume (BP MOD) 22 ml 14-42 LV Systolic Volume Index (BP MOD) 12 ml/m2 8-24 LV EF (BP MOD) 68 % 54-74 LV Diastolic Length (4C) 7.8 cm LV Systolic Length (4C) 6.3 cm LV Stroke Volume (4C MOD) 50 ml RV Dimensions 2D/MM TAPSE 1.4 cm >=1.7 Atria Name Value Normal LA Dimensions LA Dimension (MM) 3.6 cm 2.7-3.8 RA Dimensions RA Area (4C) 12 cm2 <=18 RA Area (4C) Index 6 cm2/m2 RA ESV (4C MOD) 26 ml 15-27 RA ESV Index (4C MOD) 14 ml/m2 16-34 Report Signatures Finalized by Willis Alan on 01/08/2025 04:49 PM Lyubov Mercer MD ECHO CUPID * MRI Brain Wo Contrast (01/08/2025 10:00 AM PIGMENT SUPPLIER) Anatomical Region Laterality Modality Head Magnetic Resonan ce 01/08/2025 10:1 2 AM PIGMENT SUPPLIER Impressions 01/08/2025 10:18 AM PIGMENT SUPPLIER IMPRESSION: No acute infarct. > Interpreting Provider: Ira Bautista MD on 01/08/2025 10:18 AM Narrative 01/08/2025 10:18 AM PIGMENT SUPPLIER PROCEDURE: MRI BRAIN WO CONTRAST, DATE/TIME OF EXAM: 01/08/2025 10:00 AM, LOCATION [facility] INDICATION: R40.4: Transient alteration of awareness R41.82: Altered mental status, unspecified R47.81: Slurred speech ADDITIONAL CLINICAL INFORMATION: Ordering Provider Reason For Exam: Technologist Note: Additional: COMPARISON: None. TECHNIQUE: MRI of the brain was performed without contrast. FINDINGS: Brain parenchymal signal intensity is normal. Daly-white matter differentiation is normal. No diffusion restriction to suggest acute infarct is seen. No evidence of hemorrhage is seen on gradient sequence. The ventricular system is normal in size and configuration. Midline structures are not displaced. No mass or mass effect is seen. Vascular flow-voids are normal. The paranasal sinuses and mastoid air cells are aerated. The calvarium has normal marrow signal intensity. Procedure Note Ira Bautista MD - 01/08/2025 PROCEDURE: MRI BRAIN WO CONTRAST, DATE/TIME OF EXAM: 01/08/2025 10:00AM, LOCATION [facility] INDICATION: R40.4: Transient alteration of awareness R41.82: Altered mental status, unspecified R47.81: Slurred speech ADDITIONAL CLINICAL INFORMATION: Ordering Provider Reason For Exam: Technologist Note: Additional: COMPARISON: None. TECHNIQUE: MRI of the brain was performed without contrast. FINDINGS: Brain parenchymal signal intensity is normal. Daly-white matter differentiation is normal. No diffusion restriction to suggest acute infarct is seen. No evidence of hemorrhage is seen on gradient sequence. The ventricular system is normal in size and configuration. Midline structures are not displaced. No mass or mass effect is seen. Vascular flow-voids are normal. The paranasal sinuses and mastoid aircells are aerated. The calvarium has normal marrow signal intensity. IMPRESSION: No acute infarct. > Interpreting Provider: Ira Bautista MD on 01/08/2025 10:18 AM Mau Brody MD MR ORDERABLES * URINALYSIS REFLEX MICROSCOPIC REFLEX CULTURE (01/08/2025 9:33 AM PIGMENT SUPPLIER) Color UA Yellow Yellow, Straw 01/08/2025 10:09 AM [facility] Clarity UA Clear Clear 01/08/2025 10:09 AM [facility] Glucose UA Normal Normal 01/08/2025 10:09 AM [facility] Bilirubin UA Negative Negative 01/08/2025 10:09 AM [facility] Ketone UA Negative Negative 01/08/2025 10:09 AM [facility] Specific [place] UA 1.011 1.005 - 1.030 01/08/2025 10:09 AM [facility] Blood UA Negative Negative 01/08/2025 10:09 AM [facility] pH UA 6.0 5.0 - 9.0 pH 01/08/2025 10:09 AM [facility] Protein UA Negative Negative 01/08/2025 10:09 AM [facility] Urobilinogen UA Normal Normal mg/dL 025 10:09 AM [facility] Nitrite UA Negative Negative 01/08/2025 10:09 AM [facility] Leukocyte UA Negative Negative 01/08/2025 10:09 AM [facility] Urine URINE SPECIMEN OBTAINED BY CLEAN CATCH PROCEDURE / Unknown Collection / Unknown 01/08/2025 9:33 AM PIGMENT SUPPLIER 01/08/2025 10:03 AM [facility] Narrative [facility] - 01/08/2025 10:09 AM [facility] Jo Mendez [employer] [facility] - URINALYSI S ORDERABLES [facility] [id number] [place] [id number] * URINE DRUG SCREEN IMMUNOASSAY (01/08/2025 9:33 AM [facility]) Amphetamines Screen Urine Not detected Not detected 01/08/2025 12:22 PM [facility] Barbiturates Screen Urine Not detected Not detected 01/08/2025 12:22 PM PIGMENT SUPPLIER [facility] Benzodiazepines Screen Urine Not detected Not detected 01/08/2025 12:22 PM PIGMENT SUPPLIER [facility] Cannabinoids Screen Urine Not detected Not detected 01/08/2025 12:22 PM PIGMENT SUPPLIER [facility] Cocaine Screen Urine Not detected Not detected 01/08/2025 12:22 PM PIGMENT SUPPLIER [facility] Fentanyl Urine Not detected Not detected 01/08/2025 12:22 PM PIGMENT SUPPLIER [facility] Methadone Screen Urine Not detected Not detected 01/08/2025 12:22 PM PIGMENT SUPPLIER [facility] Opiate Screen Urine Not detected Not detected 01/08/2025 12:22 PM PIGMENT SUPPLIER [facility] Phencyclidine Screen Urine Not detected Not detected 01/08/2025 12:22 PM PIGMENT SUPPLIER [facility] Urine URINE / Unknown Collection / Unknown 01/08/2025 9:33 AM PIGMENT SUPPLIER 01/08/2025 12:11 PM PIGMENT SUPPLIER Narrative [facility] - 01/08/2025 12:22 PM PIGMENT SUPPLIER This drug screen is designed for MEDICAL purposes only. It is not to be used for legal purposes, including but not limited to worker's comp, police investigations, occupational issues, child custody, etc. Any positive result is only presumptive and must be confirmed with a separate confirmatory test ordered by the physician. Drug Screening Test Cutoff Values: AMPHETAMINES 1000 ng/mL BARBITURATES 200 ng/mL BENZODIAZEPINES 200 ng/mL CANNABINOIDS(THC) 50 ng/mL COCAINE 300 ng/mL FENTANYL 1 ng/mL METHADONE 300 ng/mL OPIATES 300 ng/mL PHENCYCLIDINE(PCP) 25 ng/mL Jo Mendez FIREARMS SPECIALIST-METAL WELDER LAB - URINE TAMY TIMBO ORDERABLES [facility] [address] [place] [address] * GLUCOSE - POINT OF CARE (01/07/2025 9:26 PM PIGMENT SUPPLIER) Pathologist [facility] Glucose WB/POC 71 70 - 99 mg/dL 01/07/2025 9:27 PM [facility] Specimen Type Venous 01/07/2025 9:27 PM [facility] Blood BLOOD SPECIMEN / Unknown 01/07/2025 9:26 PM PIGMENT SUPPLIER 01/07/2025 9:27 PM PIGMENT SUPPLIER Mau Brody MD LAB - POINT OF CARE ORDERABLES Performing Organization Address City/[facility]/ZIP Co de Phone Number [facility] [address] [place] [id number] * URINALYSIS REFLEX TO MICROSCOPIC NO CULTURE (01/07/2025 9:20 PM PIGMENT SUPPLIER) Color UA Yellow Yellow, Straw 01/07/2025 10:06 PM PIGMENT SUPPLIER [facility] Clarity UA Clear Clear 01/07/2025 10:06 PM PIGMENT SUPPLIER [facility] Glucose UA Normal Normal 01/07/2025 10:06 PM PIGMENT SUPPLIER [facility] Bilirubin UA Negative Negative 01/07/2025 10:06 PM PIGMENT SUPPLIER [facility] Ketone UA Negative Negative 01/07/2025 10:06 PM PIGMENT SUPPLIER [facility] Specific [place] UA 1.023 1.005 - 1.030 01/07/2025 10:06 PM PIGMENT SUPPLIER [facility] Blood UA Negative Negative 01/07/2025 10:06 PM PIGMENT SUPPLIER [facility] pH UA 7.0 5.0 - 9.0 pH 01/07/2025 10:06 PM PIGMENT SUPPLIER [facility] Protein UA Negative Negative 01/07/2025 10:06 PM PIGMENT SUPPLIER [facility] Urobilinogen UA Normal Normal mg/dL 025 10:06 PM PIGMENT SUPPLIER [facility] Nitrite UA Negative Negative 01/07/2025 10:06 PM PIGMENT SUPPLIER [facility] Leukocyte UA Negative Negative 01/07/2025 10:06 PM PIGMENT SUPPLIER [facility] Urine URINE SPECIMEN OBTAINED BY CLEAN CATCH PROCEDURE / Unknown Collection / Unknown 01/07/2025 9:20 PM PIGMENT SUPPLIER 01/07/2025 9:23 PM PIGMENT SUPPLIER Narrative [facility] - 01/07/2025 10:06 PM PIGMENT SUPPLIER Mau Brody MD LAB - URINALYSIS ORD ERABLES Performing Organization Address [facility] Co de Phone Number [facility] [address] [place] [id number] * HEMOGLOBIN A1C (01/07/2025 9:13 PM PIGMENT SUPPLIER) Hemoglobin A1c 5.4 <5.7 % 01/08/2025 9:20 AM PIGMENT SUPPLIER [facility] Estimated Average Glucose 108 mg/dL 01/08/2025 9:20 AM [facility] Blood BLOOD SPECIMEN / Unknown Venipuncture / Unknown 01/07/2025 9:13 PM PIGMENT SUPPLIER 01/07/2025 9:23 PM PIGMENT SUPPLIER Narrative [facility] - 01/08/2025 9:20 AM PIGMENT SUPPLIER HbA1c Interpretation: Normal: < 5.7% Pre-diabetes: 5.7-6.4% Diabetes: Equal to or greater than 6.5% Test results diagnostic of diabetes should be repeated for confirmation. Treatment target values recommended by ADA and other clinical organizations should be used to evaluate metabolic control in patients. This test should not replace glucose testing for patients with Type 1 diabetes, pediatric patients, or women. Falsely low HbA1c results may be observed in patients with clinical conditions that shorten erythrocyte life span or decrease mean erythrocyte age such as the presence of unstable hemoglobin variants, elevated hemoglobin F level or other causes of hemolytic anemia. HbA1c may not accurately reflect glycemic control when clinical conditions that affect erythrocyte survival are present. Severe Iron deficiency anemia may yield falsely high results. Hemoglobin A1c assay should not be used to diagnose or monitor diabetes in patients with malignancy, recent blood transfusion, chronic kidney or liver disease. This method may yield falsely low results when hemoglobin (HbF) exceeds 5% in the specimen. The Armstrong Alinity assay for the measurement of HbA1c is a National Glycohemoglobin Standardization Program (NGSP) certified method. Jo Mendez FIREARMS SPECIALIST-METAL WELDER LAB - CHEMISTRY ORDERABLES [facility] [address] [place] [address] * CBC W/O DIFFERENTIAL (01/07/2025 9:13 PM PIGMENT SUPPLIER) Pathologist [facility] WBC 9.2 4.0 - 10.7 x10E9/L 01/07/2025 9:30 PM PIGMENT SUPPLIER [facility] RBC Count 4.12 3.90 - 5.20 x10E12/L 01/07/2025 9:30 PM PIGMENT SUPPLIER [facility] Hemoglobin 12.5 11.9 - 15.8 g/dL 01/07/2025 9:30 PM PIGMENT SUPPLIER [facility] Hematocrit 37.5 34.8 - 46.1 % 01/07/2025 9:30 PM [facility] MCV 91.0 80.0 - 98.0 fL 01/07/2025 9:30 PM [facility] MCH 30.3 26.7 - 33.6 pg 01/07/2025 9:30 PM [facility] MCHC 33.3 31.7 - 36.3 g/dL 01/07/2025 9:30 PM [facility] RDW-CV 12.6 11.3 - 14.8 % 01/07/2025 9:30 PM [facility] Platelet Count 292 150 - 420 x10E9/L 01/07/2025 9:30 PM [facility] MPV 9.6 7.8 - 11.4 fL 01/07/2025 9:30 PM [facility] Blood BLOOD SPECIMEN / Unknown Venipuncture / Unknown 01/07/2025 9:13 PM PIGMENT SUPPLIER 01/07/2025 9:23 PM [facility] Mau Brody MD LAB - HEMATOLOGY ORD ERABLES [facility] [address] [place] [address] * (ABNORMAL) BASIC METABOLIC PANEL (CALCIUM TOTAL) (01/07/2025 9:13 PM [facility]) Glucose 84 70 - 99 mg/dL 01/07/2025 9:42 PM [facility] Sodium 140 136 - 145 mmol/L 01/07/2025 9:42 PM [facility] Potassium 3.9 3.5 - 5.1 mmol/L 01/07/2025 9:42 PM [facility] Chloride 111(H) 98 - 107 mmol/L 01/07/2025 9:42 PM [facility] CO2 21(L) 22 - 29 mmol/L 01/07/2025 9:42 PM [facility] Calcium 9.0 8.4 - 10.4 mg/dL 01/07/2025 9:42 PM [facility] Anion Gap 8 6 - 16 mmol/L 01/07/2025 9:42 PM [facility] BUN 10 7 - 26 mg/dL 01/07/2025 9:42 PM PIGMENT SUPPLIER [facility] Creatinine 0.75 0.57 - 1.11 mg/dL 01/07/2025 9:42 PM [facility] eGFR by CKD-EPI >90 >=90 mL/min/1.7 3 m2 01/07/2025 9:42 PM [facility] Blood BLOOD SPECIMEN / Unknown Venipuncture / Unknown 01/07/2025 9:13 PM PIGMENT SUPPLIER 01/07/2025 9:23 PM PIGMENT SUPPLIER Mau Brody MD LAB - CHEMISTRY ORDE KATERINE Performing Organization Address City/[facility]/ZIP Co de Phone Number [facility] [address] [place] [address] * LIPID PROFILE (01/07/2025 9:13 PM PIGMENT SUPPLIER) Cholesterol 130 <200 mg/dL 01/08/2025 9:23 AM [facility] Triglycerides 102 <150 mg/dL 01/08/2025 9:23 AM [facility] HDL Cholesterol 46 >40 mg/dL 5 9:23 AM [facility] LDL Calculated 64 <130 mg/dL 01/08/2025 9:23 AM [facility] VLDL Calculated 20 <=30 mg/dL 9:23 AM [facility] Chol HDL Ratio 2.8 <4.5 01/08/2025 9:23 AM [facility] LDL/HDL Ratio 1.4 <5.0 01/08/2025 9:23 AM [facility] Blood BLOOD SPECIMEN / Unknown Venipuncture / Unknown 01/07/2025 9:13 PM PIGMENT SUPPLIER 01/07/2025 9:23 PM PIGMENT SUPPLIER Jo Mendez APRN-METAL WELDER LAB - CHEMISTRY ORDERABLES [facility] [address] [place] [address] from Last 3 Months Advance Directives * Full Code (Latest Code Status on File) Date Activated Date Inactivated Comments 01/07/2025 8:26 PM 01/08/2025 6:38 PM Care Teams Golf Club Repairer Relationship Specialty Start Date End Date Rell Bautista MD [address] [place] [address] PCP - General Internal Medicine 01/07/25
--- OUTSIDE RECORDS SUMMARY | 2025-02-06 10:59 | XMS_ITS | Clinical Summary ---
Author Organization [facility] Address [address] [place] [address] Care Team Providers Care Production Clerks Supervisor Name Role Phone Rell Bautista MD Primary Care Provider [phone] Allergies No known active allergies Medications losartan [...] 21 Active triamcinolone (KENALOG) 0.1 % cream 06/11/20 21 Active buPROPion XL (WELLBUTRIN XL) 300 [...] psychosis 04/02/2012 Overview (02/24/2017): AFFECTIVE PSYCHOSIS NOS Encounters Date Type Department Care Team Description 01/20/2025 9:00 AM SURGICAL FIRST ASSISTANT Office Visit [facility] Card[facility] [address] Jignesh Denise MD PFO (patent foramen ovale) (Primary Dx); Benign hypertension; Multiple-type hyperlipidemia from Last 3 Months Immunizations Immunization Administration Dates Next Due Influenza, Unspecified 10/08/2018(Deferred: Gala ent Refused) Tdap 03/06/2019 Medical History Medical History Date Comments Hx Other Medical 01-MANAGER CONTACT Hx Other Medical 02-PROPAGATION MANAGER Hx Other Medical 03-ENT Hx Other Medical 04-NEUROLOGIST Episodic mood disorder mood diso rder Hx Other Medical seasonal allerg ic rhinitis [...] on file Legal Sex Female 11:54 PM SURGICAL FIRST ASSISTANT Gender Identity Female 08/03/2021 12:38 PM CDT Sexual Orientation Straight 08/03/2021 12 :38 PM CDT Obstetrics History Last Filed Vital Signs Vital Sign Reading Time Taken Comments Blood Pressure 130/80 01/20/2025 8:58 AM SURGICAL FIRST ASSISTANT BP could be elevated as she forgot to take morning meds Pulse 90 01/20/2025 8:58 AM SURGICAL FIRST ASSISTANT Temperature 36.9 C (98.4 F) 08/03/2021 4:17 PM CDT Respiratory Rate 18 10/08/2018 4:35 PM SURGICAL FIRST ASSISTANT Oxygen Saturation 98% 01/20/2025 8:5 8 AM SURGICAL FIRST ASSISTANT Inhaled Oxygen Concentration - - Weight 77.6 kg (171 lb) 01/20/2025 8:58 AM SURGICAL FIRST ASSISTANT Height 160 cm (5' 3 ) 01/20/2025 8:58 AM SURGICAL FIRST ASSISTANT Body Mass Index 30.29 01/20/2025 8:58 AM SURGICAL FIRST ASSISTANT Plan of Treatment Health Maintenance Due Date Last Done Comments Cervical Cancer Screening 1974 Colon Cancer Screening-Colonoscopy 1974 Hepatitis C Screening 1974 Hepatitis B Screening 1992 Breast Cancer Screening-Mammogram 06/01/2017 06/01/2016 Depression Screening 10/08/2019 10/08/2018, 10/06/2017, 07/31/2017 Regular Well Visit/Exam 18-64 10/08/2019, 10/06/2017 Zoster Vaccine (1 of 2) 2024 Influenza Vaccine (#1) 2024 09/11/2019 DTaP/Tdap/Td Vaccine (2 - Td or Tdap) 03/06/2029 03/06/2019 Pneumococcal vaccine <65 Aged Out No longer eligible based on patient's age to complete this topic Procedures Procedure Name Priority Date/Time Associated Diagnosis Comments LP W CHOL/HDL RATIO Routine 01/08/2025 HM MAMMOGRAPHY Routine 06/01/2016 from Last 3 Months [...] EXTERNAL LAB * MAMMOGRAPHY (06/01/2016) Mammogram Normal Historical Provider HEALTH MAINTENANCE Final Result from Last 3 Months or Most Recently Relevant to Health Maintenance Insurance [facility]/PPO Address: [address] [address] [facility] [employer] [facility] H[facility]/PPO Address: [address] [address] [place] [address] [facility] [employer] [facility] H[facility]/PPO Address: [address] [address] [place] [id number] Care Teams Production Clerks Supervisor Relationship Specialty Start Date End Date Rell Bautista MD [address] [place] [address] PCP - General Internal Medicine 07/29/21
--- NOTE | 2025-02-06 11:22 | ED_ITS ---
HPI - Dizziness General Chief Complaint: Dizziness Stated Complaint: dizziness Time Seen by Provider: 02/06/25 10:23 Source: patient and family Mode of arrival: ambulatory Limitations: no limitations History of Present Illness HPI Narrative: this is a 49-year-old female with history of anxiety depression presents with some dizziness with some difficulty finding words, had a complete workup with a CTA performed which showed no evidence of occlusion and had a normal workup by her neurologist. Patient just concerned and seems anxious with no neurological deficits no fever chills no blurry vision no headache no chest pain or shortness of breath. MD elicited complaint: dizziness Onset (ago): week(s) Related Data Home Medications ?Medication ?Instructions ?Recorded ?Confirmed ?Last Taken ?Type acyclovir 400 mg tablet 400 mg PO DAILY 07/19/22 06/07/23 06/07/23 History alprazolam 0.25 mg tablet 0.25 mg PO DAILY PRN Anxiety 07/19/22 06/07/23 06/07/23 History amlodipine 10 mg tablet 10 mg PO DAILY 07/19/22 06/07/23 06/07/23 History buspirone 10 mg tablet 10 mg PO BID 07/19/22 06/07/23 06/07/23 History losartan 25 mg tablet 25 mg PO DAILY 07/19/22 06/07/23 06/06/23 History rosuvastatin 20 mg tablet 20 mg PO DAILY 07/19/22 06/07/23 06/07/23 History pantoprazole 40 mg tablet,delayed 40 mg PO DAILY 05/30/23 06/07/23 06/07/23 History release quetiapine 25 mg tablet 25 mg PO BID 05/30/23 02/06/25 06/07/23 History quetiapine 50 mg tablet 50 mg PO BID 02/06/25 Unknown History Allergies Allergy/AdvReac Type Severity Reaction Status Date / Time No Known Allergies Allergy Verified 02/06/25 10:31 Review of Systems Review of Systems: All systems reviewed & are unremarkable except as noted in HPI and below PMFSH Past Medical History Medical History Obesity Depression Anxiety Chronic GERD HTN (hypertension) Hyperlipidemia Pleurisy Chest pain due to GERD Social History Social History Smoking status: Never smoker Alcohol intake: current Substance use: never Substance use type: does not use Living arrangements: with family Spiritual care concerns: No Exam Const: General: healthy appearing and no acute distress Nutritional Appearance: well nourished Orientation/consciousness: patient oriented x3 Limitations: no limitations HENMT: Head: normal to inspection Eyes: Conjunctivae: conjunctivae normal Pupils: Equal, round and reactive pupils present EOM: EOMs intact bilaterally Neck: Neck: normal visual inspection Chest: Chest palpation & inspection: normal inspection of the chest Resp: Effort & Inspection: normal respiratory effort Auscultation: clear to auscultation bilaterally Cardio: Rate: regular rate Rhythm: regular rhythm GI: GI Palp: Yes Soft to palpation Auscultation: normal bowel sounds Urinary Catheter: Urinary Catheter: patent and draining Skin: General skin exam: normal color Rashes: no rashes Neuro: General: patient oriented x3, moves all extremities, no meningeal signs, no focal motor deficits and CN's II-XI intact bilaterally Cranial nerves: Yes Nystagmus not present Speech: normal speech Gait exam (Neuro): Normal gait present Extrem: General: normal to inspection Psych: Affect: Anxious affect present Course Course Emergency Course: Patient has CT scan which shows no acute abnormalities, advised patient to follow with her primary care physician. Vital Signs Vital signs: Vital Signs Temperature 36.6 C 02/06/25 10:28 Pulse Rate 98 02/06/25 10:28 Respiratory Rate 20 02/06/25 10:28 Blood Pressure 122/78 02/06/25 10:28 Pulse Oximetry 100 02/06/25 10:28 Oxygen Delivery Room Air 02/06/25 10:28 Temperature 36.6 C 02/06/25 10:28 Pulse Rate 98 02/06/25 10:28 Respiratory Rate 20 02/06/25 10:28 Blood Pressure 122/78 02/06/25 10:28 Pulse Oximetry 100 02/06/25 10:28 Oxygen Delivery Room Air 02/06/25 10:28 Critical Care Time Critical Care Time Critical Care Time: No Discharge Plan Discharge Clinical Impression: Anxiety, Dizziness Patient Disposition: Home, Self-Care Condition: Stable Instructions: Antibiotic Form, Lightheadedness (ED), Dizziness (ED) Additional Instructions: advised follow-up with primary care physician within the next 3 to 4 days for further evaluation treatment. Patient Language: Kinyarwanda Prescriptions: No Action acyclovir 400 mg tablet 400 mg PO DAILY alprazolam 0.25 mg tablet 0.25 mg PO DAILY PRN (Reason: Anxiety) amlodipine 10 mg tablet 10 mg PO DAILY buspirone 10 mg tablet 10 mg PO BID losartan 25 mg tablet 25 mg PO DAILY rosuvastatin 20 mg tablet 20 mg PO DAILY quetiapine 50 mg tablet 50 mg PO BID quetiapine 25 mg tablet 25 mg PO BID pantoprazole 40 mg tablet,delayed release (DR/EC) 40 mg PO DAILY Follow-up/Referrals: Rell Bautista MD [Primary Care Provider] -
--- OUTSIDE RECORDS SUMMARY | 2025-02-06 11:33 | XMS_ITS | Clinical Summary ---
Author Organization [facility] Address [address] [place] [address] Care Team Providers Care Practicing Urologist Name Role Phone Rell Bautista MD Primary Care Provider [phone] Source Comments [facility],non-owned Affiliates and Associated Physician Practices is amultiple site organization consisting of ambulatory clinics and hospital sitesin [place], [place], [place] and [place]. This disclosure is being madepursuant to the Care Everywhere program and may not contain all information available regarding this patient. Last updated 18.[facility] Allergies No known active allergies Medications * [...] Department Care Team Description 01/07/2025 7:22 PM QUANTITATIVE CONSULTANT - 01/08/2025 5:38 PM QUANTITATIVE CONSULTANT Hospital Encounter [facility] 7S TELE/NEURO [address] [place] [address] Tiarra Cabrera MD Arekooti, Hasita, MD Sampath, [...] and heating? Not hard at all 01/07/2025 [facility] of Occupat ional Health - Occupational Stress [...] any time in the past 12 m [facility], were you homeless or living in a senior living (including now)? No 01/07/2025 Sex and Gender Information Value Date Recorded Sex Assigned at Not on file Gender Identity Not on file Sexual Orientation Not on file Last Filed Vital Signs Vital Sign Reading Time Taken Comments Blood Pressure 146/90 01/08/2025 3:29 PM QUANTITATIVE CONSULTANT Pulse 84 01/08/2025 3:29 PM QUANTITATIVE CONSULTANT Temperature 37.2 C (99 F) 01/08/2025 3:29 PM QUANTITATIVE CONSULTANT Respiratory Rate 18 01/08/2025 3:29 PM QUANTITATIVE CONSULTANT Oxygen Saturation 94% 01/08/2025 3:29 PM QUANTITATIVE CONSULTANT Inhaled Oxygen Concentration - - Weight 76.7 kg (169 lb) 01/08/2025 1:02 PM QUANTITATIVE CONSULTANT Height 160 cm (5' 3 ) 01/08/2025 1:02 PM QUANTITATIVE CONSULTANT Body Mass Index 29.94 01/08/2025 1:02 PM QUANTITATIVE CONSULTANT Plan of Treatment Health Maintenance Due Date [...] BUBBLE STUDY PENDING DISCHARGE 01/08/2025 3:44 PM QUANTITATIVE CONSULTANT Altered mental status, unspecified altered mental status type MRI BRAIN WO CONTRAST Routine 01/08/2025 10:00 AM QUANTITATIVE CONSULTANT Transient alteration of awareness Altered mental status, unspecified altered mental status type Slurred speech URINE DRUG SCREEN IMMUNOASSAY Add on 01/08/2025 9:33 AM QUANTITATIVE CONSULTANT URINALYSIS REFLEX MICROSCOPIC REFLEX CULTURE Routine 01/08/2025 9:33 AM QUANTITATIVE CONSULTANT PT EVAL AND TREAT Routine 01/08/2025 8:2 5 AM QUANTITATIVE CONSULTANT OT EVAL AND TREAT Routine 01/08/2025 8:2 5 AM QUANTITATIVE CONSULTANT PT EVAL AND TREAT Routine 01/08/2025 7:2 6 AM QUANTITATIVE CONSULTANT GLUCOSE - POINT OF CARE Routine 01/07/2025 9:26 PM QUANTITATIVE CONSULTANT URINALYSIS REFLEX TO MICROSCOPIC NO CULTURE Routine 01/07/2025 9:20 PM QUANTITATIVE CONSULTANT LIPID PROFILE Add on 01/07/2025 9:13 PM QUANTITATIVE CONSULTANT HEMOGLOBIN A1C Add on 01/07/2025 9:13 PM QUANTITATIVE CONSULTANT CBC W/O DIFFERENTIAL Routine 01/07/2025 9:13 PM QUANTITATIVE CONSULTANT BASIC METABOLIC PANEL (CALCIUM TOTAL) Routine 01/07/2025 9:13 PM QUANTITATIVE CONSULTANT from Last 3 Months Results * ECHO COMPLETE W BUBBLE STUDY (01/08/2025 3:44 PM QUANTITATIVE CONSULTANT) Pathologist [facility] Dimensionless Index 0.811 unitless [facility] CV FUJI [...] Region Laterality Modality Ultrasound 01/08/2025 2:34 PM QUANTITATIVE CONSULTANT Narrative 01/08/2025 4:49 PM QUANTITATIVE CONSULTANT Summary * The left ventricle is normal [...] 2:34 PM Patient Status: I/P Study Site: [facility] Primary Location: [facility] EStudy Info Exam Type: ECHO COMPLETE W BUBBLE STUDY Indications R41.82 - Altered mental status, unspecified altered mental status type Procedure(s) * A complete 2D, color Doppler, spectral Doppler, and M-Mode transthoracic echocardiogram was performed. Contrast/Agitated Saline Contrast / Saline: Agitated Saline Amount: --- ml Staff Referring Physician: Lyubov Mercer Ordering Provider: Lyubov Mercer Attending Physician: Lyubov Mercer Housetrailer Servicer: Jonathan Au Left Ventricle The left ventricle [...] 2:34 PM Patient Status: I/P Study Site: [facility] Primary Location: [facility] EStudy Info Exam Type: ECHO COMPLETE W BUBBLE STUDY Indications R41.82 - Altered mental status, unspecified altered mental statustype Procedure(s) * A complete 2D, color Doppler, spectral Doppler, and M-Modetransthoracic echocardiogram was performed. Contrast/Agitated Saline Contrast / Saline: Agitated Saline Amount: --- ml Staff Referring Physician: Lyubov Mercer Ordering Provider: Lyubov Mercer Attending Physician: Lyubov Mercer Housetrailer Servicer: Jonathan Au Left Ventricle The left ventricle [...] MRI Brain Wo Contrast (01/08/2025 10:00 AM QUANTITATIVE CONSULTANT) Anatomical Region Laterality Modality Head Magnetic Resonan ce 01/08/2025 10:1 2 AM QUANTITATIVE CONSULTANT Impressions 01/08/2025 10:18 AM QUANTITATIVE CONSULTANT IMPRESSION: No acute infarct. > Interpreting Provider: Ira Bautista MD on 01/08/2025 10:18 AM Narrative 01/08/2025 10:18 AM QUANTITATIVE CONSULTANT PROCEDURE: MRI BRAIN WO CONTRAST, DATE/TIME OF EXAM: 01/08/2025 10:00 AM, LOCATION [facility] INDICATION: R40.4: Transient alteration of awareness R41.82: [...] CONTRAST, DATE/TIME OF EXAM: 01/08/2025 10:00AM, LOCATION [facility] INDICATION: R40.4: Transient alteration of awareness R41.82: [...] REFLEX MICROSCOPIC REFLEX CULTURE (01/08/2025 9:33 AM QUANTITATIVE CONSULTANT) Color UA Yellow Yellow, Straw 01/08/2025 10:[address] [facility] Clarity UA Clear Clear 01/08/2025 10:[address] [facility] Glucose UA Normal Normal 01/08/2025 10:[address] [facility] Bilirubin UA Negative Negative 01/08/2025 10:[address] [facility] Ketone UA Negative Negative 01/08/2025 10:[address] [facility] Specific [place] UA 1.011 1.005 - 1.030 01/08/2025 10:[address] [facility] Blood UA Negative Negative 01/08/2025 10:[address] [facility] pH UA 6.0 5.0 - 9.0 pH 01/08/2025 10:[address] [facility] Protein UA Negative Negative 01/08/2025 10:[address] [facility] Urobilinogen UA Normal Normal mg/dL 025 10:[address] [facility] Nitrite UA Negative Negative 01/08/2025 10:[address] [facility] Leukocyte UA Negative Negative 01/08/2025 10:[address] [facility] Urine URINE SPECIMEN OBTAINED BY CLEAN CATCH PROCEDURE / Unknown Collection / Unknown 01/08/2025 9:33 AM QUANTITATIVE CONSULTANT 01/08/2025 10:03 AM [facility] Narrative [facility] - 01/08/2025 10:09 AM [facility] Jo Mendez DEPARTMENT CLERK-ADVISOR CONSULTANT LAB - URINALYSI S ORDERABLES [facility] [id number] [place] [address] * URINE DRUG SCREEN IMMUNOASSAY (01/08/2025 9:33 AM [facility]) Amphetamines Screen Urine Not detected Not detected 01/08/2025 12:[address] [facility] Barbiturates Screen Urine Not detected Not detected 01/08/2025 12:22 PM QUANTITATIVE CONSULTANT [facility] Benzodiazepines Screen Urine Not detected Not detected 01/08/2025 12:22 PM QUANTITATIVE CONSULTANT [facility] Cannabinoids Screen Urine Not detected Not detected 01/08/2025 12:22 PM QUANTITATIVE CONSULTANT [facility] Cocaine Screen Urine Not detected Not detected 01/08/2025 12:22 PM QUANTITATIVE CONSULTANT [facility] Fentanyl Urine Not detected Not detected 01/08/2025 12:22 PM QUANTITATIVE CONSULTANT [facility] Methadone Screen Urine Not detected Not detected 01/08/2025 12:22 PM QUANTITATIVE CONSULTANT [facility] Opiate Screen Urine Not detected Not detected 01/08/2025 12:22 PM QUANTITATIVE CONSULTANT [facility] Phencyclidine Screen Urine Not detected Not detected 01/08/2025 12:22 PM QUANTITATIVE CONSULTANT [facility] Urine URINE / Unknown Collection / Unknown 01/08/2025 9:33 AM QUANTITATIVE CONSULTANT 01/08/2025 12:11 PM QUANTITATIVE CONSULTANT Narrative [facility] - 01/08/2025 12:22 PM QUANTITATIVE CONSULTANT This drug screen is designed for MEDICAL [...] 300 ng/mL PHENCYCLIDINE(PCP) 25 ng/mL Jo Mendez DEPARTMENT CLERK-ADVISOR CONSULTANT LAB - URINE TAMY TIMBO ORDERABLES [facility] [address] [place] [address] * GLUCOSE - POINT OF CARE (01/07/2025 9:26 PM QUANTITATIVE CONSULTANT) Pathologist [facility] Glucose WB/POC 71 70 - 99 mg/dL 01/07/2025 9:27 PM [facility] Specimen Type Venous 01/07/2025 9:27 PM [facility] Blood BLOOD SPECIMEN / Unknown 01/07/2025 9:26 PM QUANTITATIVE CONSULTANT 01/07/2025 9:27 PM QUANTITATIVE CONSULTANT Mau Brody MD LAB - POINT OF CARE ORDERABLES Performing Organization Address City/[facility]/ZIP Co de Phone Number [facility] [address] [place] [phone] * URINALYSIS REFLEX TO MICROSCOPIC NO CULTURE (01/07/2025 9:20 PM QUANTITATIVE CONSULTANT) Color UA Yellow Yellow, Straw 01/07/2025 10:06 PM QUANTITATIVE CONSULTANT [facility] Clarity UA Clear Clear 01/07/2025 10:06 PM QUANTITATIVE CONSULTANT [facility] Glucose UA Normal Normal 01/07/2025 10:06 PM QUANTITATIVE CONSULTANT [facility] Bilirubin UA Negative Negative 01/07/2025 10:06 PM QUANTITATIVE CONSULTANT [facility] Ketone UA Negative Negative 01/07/2025 10:06 PM QUANTITATIVE CONSULTANT [facility] Specific [place] UA 1.023 1.005 - 1.030 01/07/2025 10:06 PM QUANTITATIVE CONSULTANT [facility] Blood UA Negative Negative 01/07/2025 10:06 PM QUANTITATIVE CONSULTANT [facility] pH UA 7.0 5.0 - 9.0 pH 01/07/2025 10:06 PM QUANTITATIVE CONSULTANT [facility] Protein UA Negative Negative 01/07/2025 10:06 PM QUANTITATIVE CONSULTANT [facility] Urobilinogen UA Normal Normal mg/dL 025 10:06 PM QUANTITATIVE CONSULTANT [facility] Nitrite UA Negative Negative 01/07/2025 10:06 PM QUANTITATIVE CONSULTANT [facility] Leukocyte UA Negative Negative 01/07/2025 10:06 PM QUANTITATIVE CONSULTANT [facility] Urine URINE SPECIMEN OBTAINED BY CLEAN CATCH PROCEDURE / Unknown Collection / Unknown 01/07/2025 9:20 PM QUANTITATIVE CONSULTANT 01/07/2025 9:23 PM QUANTITATIVE CONSULTANT Narrative [facility] - 01/07/2025 10:06 PM QUANTITATIVE CONSULTANT Mau Brody MD LAB - URINALYSIS ORD ERABLES Performing Organization Address [facility] Co de Phone Number [facility] [id number] [place] [address] * HEMOGLOBIN A1C (01/07/2025 9:13 PM QUANTITATIVE CONSULTANT) Hemoglobin A1c 5.4 <5.7 % 01/08/2025 9:20 AM QUANTITATIVE CONSULTANT [facility] Estimated Average Glucose 108 mg/dL 01/08/2025 9:[address] [facility] Blood BLOOD SPECIMEN / Unknown Venipuncture / Unknown 01/07/2025 9:13 PM QUANTITATIVE CONSULTANT 01/07/2025 9:23 PM QUANTITATIVE CONSULTANT Narrative [facility] - 01/08/2025 9:20 AM QUANTITATIVE CONSULTANT HbA1c Interpretation: Normal: < 5.7% Pre-diabetes: 5.7-6.4% [...] Standardization Program (NGSP) certified method. Jo Mendez DEPARTMENT CLERK-ADVISOR CONSULTANT LAB - CHEMISTRY ORDERABLES [facility] [address] [place] [address] * CBC W/O DIFFERENTIAL (01/07/2025 9:13 PM QUANTITATIVE CONSULTANT) Pathologist [facility] WBC 9.2 4.0 - 10.7 x10E9/L 01/07/2025 9:30 PM QUANTITATIVE CONSULTANT [facility] RBC Count 4.12 3.90 - 5.20 x10E12/L 01/07/2025 9:30 PM QUANTITATIVE CONSULTANT [facility] Hemoglobin 12.5 11.9 - 15.8 g/dL 01/07/2025 9:30 PM QUANTITATIVE CONSULTANT [facility] Hematocrit 37.5 34.8 - 46.1 % 01/07/2025 9:[address] [facility] MCV 91.0 80.0 - 98.0 fL 01/07/2025 9:[address] [facility] MCH 30.3 26.7 - 33.6 pg 01/07/2025 9:[address] [facility] MCHC 33.3 31.7 - 36.3 g/dL 01/07/2025 9:[address] [facility] RDW-CV 12.6 11.3 - 14.8 % 01/07/2025 9:[address] [facility] Platelet Count 292 150 - 420 x10E9/L 01/07/2025 9:[address] [facility] MPV 9.6 7.8 - 11.4 fL 01/07/2025 9:[address] [facility] Blood BLOOD SPECIMEN / Unknown Venipuncture / Unknown 01/07/2025 9:13 PM QUANTITATIVE CONSULTANT 01/07/2025 9:23 PM [facility] Mau Brody MD LAB - HEMATOLOGY ORD ERABLES [facility] [address] [place] [address] * (ABNORMAL) BASIC METABOLIC PANEL (CALCIUM TOTAL) (01/07/2025 9:13 PM [facility]) Glucose 84 70 - 99 mg/dL 01/07/2025 9:[address] [facility] Sodium 140 136 - 145 mmol/L 01/07/2025 9:[address] [facility] Potassium 3.9 3.5 - 5.1 mmol/L 01/07/2025 9:[address] [facility] Chloride 111(H) 98 - 107 mmol/L 01/07/2025 9:[address] [facility] CO2 21(L) 22 - 29 mmol/L 01/07/2025 9:[address] [facility] Calcium 9.0 8.4 - 10.4 mg/dL 01/07/2025 9:[address] [facility] Anion Gap 8 6 - 16 mmol/L 01/07/2025 9:[address] [facility] BUN 10 7 - 26 mg/dL 01/07/2025 9:42 PM QUANTITATIVE CONSULTANT [facility] Creatinine 0.75 0.57 - 1.11 mg/dL 01/07/2025 9:[address] [facility] eGFR by CKD-EPI >90 >=90 mL/min/1.7 3 m2 01/07/2025 9:[address] [facility] Blood BLOOD SPECIMEN / Unknown Venipuncture / Unknown 01/07/2025 9:13 PM QUANTITATIVE CONSULTANT 01/07/2025 9:23 PM QUANTITATIVE CONSULTANT Mau Brody MD LAB - CHEMISTRY ORDE KATERINE Performing Organization Address City/[facility]/ZIP Co de Phone Number [facility] [address] [place] [address] * LIPID PROFILE (01/07/2025 9:13 PM QUANTITATIVE CONSULTANT) Cholesterol 130 <200 mg/dL 01/08/2025 9:[address] [facility] Triglycerides 102 <150 mg/dL 01/08/2025 9:[address] [facility] HDL Cholesterol 46 >40 mg/dL 5 9:[address] [facility] LDL Calculated 64 <130 mg/dL 01/08/2025 9:[address] [facility] VLDL Calculated 20 <=30 mg/dL 9:[address] [facility] Chol HDL Ratio 2.8 <4.5 01/08/2025 9:[address] [facility] LDL/HDL Ratio 1.4 <5.0 01/08/2025 9:[address] [facility] Blood BLOOD SPECIMEN / Unknown Venipuncture / Unknown 01/07/2025 9:13 PM QUANTITATIVE CONSULTANT 01/07/2025 9:23 PM QUANTITATIVE CONSULTANT Jo Mendez APRN-ADVISOR CONSULTANT LAB - CHEMISTRY ORDERABLES [facility] [address] [place] [address] from Last 3 Months Advance Directives * Full Code (Latest Code Status on File) Date Activated Date Inactivated Comments 01/07/2025 8:26 PM 01/08/2025 6:38 PM Care Teams Practicing Urologist Relationship Specialty Start Date End Date Rell Bautista MD [address] [place] [address] PCP - General Internal Medicine 01/07/25
--- OUTSIDE RECORDS SUMMARY | 2025-02-06 11:33 | XMS_ITS | Clinical Summary ---
Author Organization [facility] Address [address] [place] [address] Care Team Providers Care Auto Garage Mechanic Name Role Phone Rell Bautista MD Primary Care Provider Allergies No known active allergies Medications losartan [...] Department Care Team Description 01/20/2025 9:00 AM SENIOR SALES COMPENSATION ANALYST Office Visit [facility] Cardiology [facility] [address] Jignesh Denise MD PFO (patent foramen ovale) (Primary Dx); Benign hypertension; Multiple-type hyperlipidemia from Last 3 Months Immunizations Immunization Administration Dates Next Due Influenza, Unspecified 10/08/2018(Deferred: Gala ent Refused) Tdap 03/06/2019 Medical History Medical History Date Comments 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 Hx Other Medical 03-ENT Hx Other Medical [...] on file Legal Sex Female 11:54 PM SENIOR SALES COMPENSATION ANALYST Gender Identity Female 08/03/2021 12:38 PM CDT Sexual Orientation Straight 08/03/2021 12 :38 PM CDT Obstetrics History Last Filed Vital Signs Vital Sign Reading Time Taken Comments Blood Pressure 130/80 01/20/2025 8:58 AM SENIOR SALES COMPENSATION ANALYST BP could be elevated as she forgot to take morning meds Pulse 90 01/20/2025 8:58 AM SENIOR SALES COMPENSATION ANALYST Temperature 36.9 C (98.4 F) 08/03/2021 4:17 PM CDT Respiratory Rate 18 10/08/2018 4:35 PM SENIOR SALES COMPENSATION ANALYST Oxygen Saturation 98% 01/20/2025 8:5 8 AM SENIOR SALES COMPENSATION ANALYST Inhaled Oxygen Concentration - - Weight 77.6 kg (171 lb) 01/20/2025 8:58 AM SENIOR SALES COMPENSATION ANALYST Height 160 cm (5' 3 ) 01/20/2025 8:58 AM SENIOR SALES COMPENSATION ANALYST Body Mass Index 30.29 01/20/2025 8:58 AM SENIOR SALES COMPENSATION ANALYST Plan of Treatment Health Maintenance Due Date [...] Most Recently Relevant to Health Maintenance Insurance [facility] CHOICE PLUS [facility] CHOICE PLUS [facility] CHOICE PLUS [place] [id number] Care Teams Auto Garage Mechanic Relationship Specialty Start Date End Date Rell Bautista MD [address] [place] [address] PCP - General Internal Medicine 07/29/21
--- OUTSIDE RECORDS SUMMARY | 2025-02-06 11:33 | XMS_ITS | Referral Summary ---
Author Organization [facility] Address [address] [place] [address] Care Team Providers Care Assistant Credit Manager Name Role Phone Rell Bautista MD Primary Care Provider [phone] Encounters Date Type Department Care Team Description 01/20/2025 9:00 AM AIRDOX FITTER Office Visit [facility] Medical Group Cardiology [address], [place] [address] Jignesh Denise MD PFO (patent [...] on file Legal Sex Female 11:54 PM AIRDOX FITTER Gender Identity Female 08/03/2021 12:38 PM CDT Sexual Orientation Straight 08/03/2021 12 :38 PM CDT Last Filed Vital Signs Vital Sign Reading Time Taken Comments Blood Pressure 130/80 01/20/2025 8:58 AM AIRDOX FITTER BP could be elevated as she forgot to take morning meds Pulse 90 01/20/2025 8:58 AM AIRDOX FITTER Temperature 36.9 C (98.4 F) 08/03/2021 4:17 PM CDT Respiratory Rate 18 10/08/2018 4:35 PM AIRDOX FITTER Oxygen Saturation 98% 01/20/2025 8:5 8 AM AIRDOX FITTER Inhaled Oxygen Concentration - - Weight 77.6 kg (171 lb) 01/20/2025 8:58 AM AIRDOX FITTER Height 160 cm (5' 3 ) 01/20/2025 8:58 AM AIRDOX FITTER Body Mass Index 30.29 01/20/2025 8:58 AM AIRDOX FITTER Plan of Treatment Not on file Procedures [...] Most Recently Relevant to Health Maintenance Insurance [facility] CHOICE PLUS [facility] CHOICE PLUS [facility] CHOICE PLUS Care Teams Assistant Credit Manager Relationship Specialty Start Date End Date Rell Bautista MD [address] [place] [address] PCP - General Internal Medicine 07/29/21
== END 2025-02-06 11:40 | disposition home or self-care (01) ==
PROVIDERS: Emergency Provider Emergency Medicine; PCP Internal Medicine
DX: F41.9 Anxiety disorder, unspecified (principal); R42 Dizziness and giddiness; I10 Essential (primary) hypertension
CPT/HCPCS: 70450; 99284